=== PATIENT | male | born 1965 | race Caucasian/White ===

== ENCOUNTER 2018-01-26 07:55 | Outpatient (CLI) | payer BC ==
[~2018-01-26 07:55] MED LIST: IODIXANOL 320 MG/ML 100 ML VIAL.; LIDOCAINE 2% 20 ML VIAL.
[2018-01-26 08:34] LABS: ANION GAP 5 (6-14); BLOOD UREA NITROGEN 17 mg/dL (8-26); CALCIUM 9.6 mg/dL (8.5-10.1); CARBON DIOXIDE 31 mmol/L (21-32); CHLORIDE 104 mmol/L (98-107); CREATININE 1.4 mg/dL (0.7-1.3); GFR 52.8; GLUCOSE 137 mg/dL (70-99); POTASSIUM 4.7 mmol/L (3.5-5.1); SODIUM 140 mmol/L (136-145)
[2018-01-26 08:44] LABS: HEMATOCRIT 47.3 % (39.0-53.0); HEMOGLOBIN 15.7 g/dL (13.0-17.5); MEAN CORPUSCULAR HEMOGLOBIN 28 pg (25-35); MEAN CORPUSCULAR HGB CONC 33 g/dL (31-37); MEAN CORPUSCULAR VOLUME 85 fL (79-100); PLATELET COUNT 322 x10^3/uL (140-400); RED BLOOD COUNT 5.54 x10^6/uL (4.30-5.70); RED CELL DISTRIBUTION WIDTH 13.7 % (11.5-14.5); WHITE BLOOD COUNT 8.3 x10^3/uL (4.0-11.0)
[2018-01-26 08:45] LABS: INR 0.9 (0.8-1.1); PROTHROMBIN TIME PATIENT 11.4 SEC (11.7-14.0)
[2018-01-26] MEDS ORDERED: CONTRAST GIVEN MC (10:30)
[2018-01-26] MEDS ORDERED: HEPARIN for IV BOLUS 10,000 UNIT/10 ML VIAL. (11:09)
[2018-01-26] MEDS ORDERED: IODIXANOL 320 MG/ML 100 ML VIAL. (11:23)
[2018-01-26] MEDS: IODIXANOL 320 MG/ML 100 ML VIAL. IART (11:43)
[2018-01-26] MEDS: LIDOCAINE 2% 20 ML VIAL. IJ (11:44)
[2018-01-26] MEDS: fentaNYL PF VIAL 100 MCG/2 ML VIAL IV (11:45)
[2018-01-26] MEDS: HEPARIN for IV BOLUS 10,000 UNIT/10 ML VIAL. IV (11:45)
[2018-01-26] MEDS: MIDAZOLAM HCL/PF 2 MG/2 ML VIAL. IV (11:45)
[2018-01-26] MEDS ORDERED: IV NORMAL SALINE 1000ML BAG 1,000 ML IV (11:52)
[2018-01-26] MEDS ORDERED: 0.9 % SODIUM CHLORIDE 10 ML DISP.SYRIN. IV (12:00)
[2018-01-26] MEDS ORDERED: NITROGLYCERIN SUBLINGUAL 0.4 MG BOTTLE OF 25. SL (12:00)
== END 2018-01-26 15:58 | disposition home or self-care (01) ==
LOC: CCL 07:55
DX: I25.10 Atherosclerotic heart disease of native coronary artery without angina pectoris (principal); I25.2 Old myocardial infarction; Z95.1 Presence of aortocoronary bypass graft; E78.00 Pure hypercholesterolemia, unspecified; G47.39 Other sleep apnea; Z90.49 Acquired absence of other specified parts of digestive tract; E11.9 Type 2 diabetes mellitus without complications; Z87.891 Personal history of nicotine dependence
CPT/HCPCS: 36415; 80048; 85027; 85610; 93459; 93567; 99152; 99153; C1769; C1771; C1892; G0269; J1644; J2250; J3010

== ENCOUNTER 2021-05-31 22:10 | Inpatient (IN) | payer BC ==
[~2021-05-31] VITALS: Ht 182.9 cm; Wt 116.4 kg
[~2021-05-31 22:10] MED LIST changes: +ASPI-630 PO; +ATOR40TA59 PO; +CARV3.1210 PO; +DAPA10TA PO; +GLIP5TAB10 PO; -IODIXANOL 320 MG/ML 100 ML VIAL.; +LEVO500T59 PO; -LIDOCAINE 2% 20 ML VIAL.; +LINA5TAB PO; +LIRA0.6P SQ; +LISI20TA18 PO; +METF10007 PO; +METR-34 PO; +OXYC1TAB7 PO; +SIMV40TA18 PO; +SITA100T PO
[2021-05-31 22:29] LABS: BASO # 0.1 x10^3/uL (0.0-0.2); BASO % 1 % (0-3); EOS # 0.1 x10^3/uL (0.0-0.7); EOS % 1 % (0-3); HEMATOCRIT 45.6 % (39.0-53.0); HEMOGLOBIN 15.5 g/dL (13.0-17.5); LYMPH # 2.8 x10^3/uL (1.0-4.8); LYMPH % 35 % (24-48); MEAN CORPUSCULAR HEMOGLOBIN 29 pg (25-35); MEAN CORPUSCULAR HGB CONC 34 g/dL (31-37); MEAN CORPUSCULAR VOLUME 86 fL (79-100); MONO # 0.7 x10^3/uL (0.0-1.1); MONO % 8 % (0-9); NEUT # 4.3 x10^3/uL (1.8-7.7); NEUT % 54 % (31-73); PLATELET COUNT 257 x10^3/uL (140-400); RED BLOOD COUNT 5.33 x10^6/uL (4.30-5.70); RED CELL DISTRIBUTION WIDTH 14.4 % (11.5-14.5)
[2021-05-31 22:39] LABS: CALCIUM 9.3 mg/dL (8.5-10.1); CREATININE 1.3 mg/dL (0.7-1.3); GFR 56.7
[2021-05-31 22:44] LABS: ALBUMIN 3.8 g/dL (3.4-5.0); ALBUMIN/GLOBULIN RATIO 1.1 (1.0-1.7); TOTAL BILIRUBIN 0.3 mg/dL (0.2-1.0); TOTAL PROTEIN 7.4 g/dL (6.4-8.2)
--- NOTE | 2021-05-31 22:53 | RAD ---
PQRS Compliance Statement: One or more of the following individualized dose reduction techniques were utilized for this examinat ion: 1. Automated exposure control 2. Adjustment of the mA and/or kV according to patient size 3. Use of iterative reconstruction technique CT head without contrast 05/31/2021 10:37 PM INDICATION: Right face and arm numbness, resolved COMPARISON: None available TECHNIQUE: Multiple axial CT images of the head were obtained from skull base through the vertex with out intravenous contrast. FINDINGS: Head: Ventricles, sulci and basal cisterns are within normal limits. There is no hydrocephalus. [place]-white matter differentiation is normal. There is no acute intracranial hemorrhage. There is no mass, mass e ffect or midline shift. Posterior fossa is normal in appearance. Visualized portions of the orbits are normal. Paranasal sinuses are well aerated. Mastoid air cells a re well aerated. Scalp and calvaria are normal. IMPRESSION: No acute intracranial hemorrhage. FOR INTERNAL CODING PURPOSES Critical result: Findings discussed with Dr. Segura at 05/31/2021 10:50 PM. RESULT CODE: (C) Electronically signed by: Stephany Conti MD (05/31/2021 10:51 PM) [facility]
[2021-05-31] MEDS ORDERED: CONTRAST GIVEN. MC PRN (23:00)
[2021-05-31] MEDS ORDERED: IOHEXOL 350 MG/ML 100 ML VIAL. IV ONE (23:00)
--- NOTE | 2021-05-31 23:08 | RAD ---
PQRS Compliance Statement: One or more of the following individualized dose reduction techniques were utilized for this examinat ion: 1. Automated exposure control 2. Adjustment of the mA and/or kV according to patient size 3. Use of iterative reconstruction technique CTA STROKE HEAD/NECK w/o 05/31/2021 10:37 PM INDICATION: Code stroke. Right-sided numbness COMPARISON: CT head 05/31/2021 TECHNIQUE: Multiple axial CT images of the head and neck were obtained after the intravenous administ ration of nonionic contrast. Coronal and sagittal reformats are provided. Maximum intensity projectio n images are provided. Stenosis calculations for CT, MR, and conventional angiography are based upon measurements of the [place] ICA diameter in accordance with the NASCET methodology. Stenosis calculations for carotid ultraso und studies are derived from validated velocity criteria which are known to correlate with the NASCET methodology. FINDINGS: Ventricles, sulci and basal cisterns are normal in appearance. [place]-white matter differentiation is p reserved. There is no mass, mass effect or midline shift. Posterior fossa is normal in appearance. Se lla and suprasellar cistern appear normal. Orbits are normal in appearance with exception of bilatera l lens replacement. Scalp and calvaria appear intact. Paranasal sinuses are well aerated. Mastoid air cells are well aerated. 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 Visualized portions of lungs are clear. Thyroid gland is normal in appearance. Neck soft tissues are normal in appearance. No pathologically enlarged cervical lymphadenopathy. Pharynx and larynx appear intact. Vascular findings: There is a normal three-vessel aortic arch. Origins of the brachiocephalic vessels are widely patent. Right common carotid artery is normal in course and caliber. Mild calcified plaque identified at the right carotid bifurcation. No significant stenosis of the right cervical internal carotid artery. Ext ernal carotid artery is widely patent. There is intimal thickening of the distal left common carotid artery. There is 5 mm thick soft plaque at the left carotid bifurcation. There is 50 percent stenosis of proximal left cervical internal car otid artery secondary to noncalcified atheromatous plaque. There is moderate to severe stenosis of th e origin of the left external carotid artery. Right vertebral artery is normal in course and caliber. Left vertebral artery is diminutive in calibe r with multifocal stenosis. Severe irregularity of the intracranial segment left vertebral artery. Le ft posterior inferior cerebral artery is not definitively visualized. Intracranial segments of internal carotid arteries are normal in course and caliber. There is mild ca lcified atheromatous plaque involving the cavernous segments without significant stenosis. Origins of the ophthalmic segments of the internal carotid artery appears widely patent. Middle mild to moderat e irregularity of the left middle cerebral artery territory. Mild irregularity of the right middle ce rebral artery territory. Mild irregularity of the right A1 segment. Anterior cerebral arteries are no rmal in course and caliber. Anterior communicating artery is visualized. Basilar artery is normal in course and caliber. Superior cerebellar arteries are widely patent. Poste rior cerebral arteries are normal in course and caliber. There is no aneurysm, vascular malformation or large vessel occlusion involving [place]. Sup erior sagittal sinus is patent. IMPRESSION: 1. There is no evidence for acute intracranial hemorrhage. 2. 50 percent stenosis of the left cervical internal carotid artery at the origin secondary to noncal cified atheromatous plaque. 3. There is moderate to severe irregularity of the left vertebral artery which is diminutive in calib er. Left posterior inferior cerebral artery is not definitively visualized. 4. Intracranial atherosclerotic changes as detailed above. FOR INTERNAL CODING PURPOSES Critical result: Findings discussed with Dr. Segura at 05/31/2021 1053PM. RESULT CODE: (C) Electronically signed by: Stephany Conti MD (05/31/2021 11:06 PM) [facility]
[2021-05-31 23:43] LABS: PROTHROMBIN TIME PATIENT 12.8 SEC (11.7-14.0)
--- NOTE | 2021-05-31 23:50 | PHYS DOC ---
Past Medical History Past Medical History: Diabetes-Type II, High Cholesterol, Hypertension Past Surgical History: Appendectomy, Coronary Bypass Surgery Additional Past Surgical Histo: nasal- deviated septum Smoking Status: Never Smoker Alcohol Use: None Drug Use: None General Adult EDM: Chief Complaint: NEURO SYMPTOMS/DEFICITS HPI: HPI: Patient is a 56 year old male with past medical history of coronary artery disease status post CABG, hypertension, hyperlipidemia, and diabetes presents with a chief complaint of right upper extremity weakness. Patient states 2030 hrs. he noticed numbness/tingling and difficulty with fine motor movement of his right hand and numbness/tingling to the right side of his right side of his lips with right sided facial droop. Patients hand and facial weakness lasted approximately 1 hour and resolved prior to arrival. Patient states numbness/tingling of his right side of his lips continues but has greatly improved. Patient denied any associated headache dizziness chest pain or shortness of breath. Patient arrived by private vehicle. He ambulated into the ER with a steady gait. History obtained from the patient he was accompanied by his . Patient was activated as a code stroke certainly after arrival. Review of Systems: Review of Systems: Constitutional: Denies fever or chills. [] Eyes: Denies change in visual acuity. [] HENT: Denies nasal congestion or sore throat. [] Respiratory: Denies cough or shortness of breath. [] Cardiovascular: Denies chest pain or edema. [] GI: Denies abdominal pain, nausea, vomiting, bloody stools or diarrhea. [] : Denies dysuria. [] Musculoskeletal: Denies back pain or joint pain. [] Integument: Denies rash. [] Neurologic: Denies headache, Positive focal weakness or sensory changes. [] Endocrine: Denies polyuria or polydipsia. [] Lymphatic: Denies swollen glands. [] Psychiatric: Denies depression or anxiety. [] Heart Score: C/O Chest Pain: N/A Risk Factors: Risk Factors: DM, Current or recent (<one month) smoker, HTN, HLP, family history of CAD, obesity. Risk Scores: Score 0 - 3: 2.5% MACE over next 6 weeks - Discharge Home Score 4 - 6: 20.3% MACE over next 6 weeks - Admit for Clinical Observation Score 7 - 10: 72.7% MACE over next 6 weeks - Early Invasive Strategies Current Medications: Current Medications Medications (Trade) Dose Ordered Sig/Bishnu Start Time Stop Time Status Last Admin Dose Admin Info (CONTRAST GIVEN -- Rx MONITORING) 1 each PRN DAILY PRN 05/31/21 23:00 06/02/21 22:59 Iohexol (Omnipaque 350 Mg/ml) 75 ml 1X ONCE 05/31/21 23:00 05/31/21 23:01 DC 05/31/21 22:56 75 ML Allergies: Allergies: Allergies Coded Allergies Type Severity Reaction Last Updated Verified canagliflozin Allergy Intermediate 01/26/18 Yes Physical Exam: PE: General: alert, no acute distress. Skin: warm, dry and intact. HENT: bilateral external ears normal, oropharynx moist, nose normal. Head:: Normocephalic, atraumatic. Neck: Trachea midline. Eyes: EOMI, Normal conjunctiva, No drainage CARDIOVASCULAR: Regular rate and rhythm RESPIRATORY: No respiratory distress Back: Full range of motion. Skin: Warm, dry, no erythema, no rash. MUSCULOSKELETAL: Full range of motion of bilateral upper and lower extremities. GASTROINTESTINAL: Abdomen soft without rebound or guarding. NEUROLOGICAL: Alert and noted to person, place and time. No neurological deficits observed Psychiatric: Cooperative. Normal judgment Current Patient Data: Labs: Laboratory Tests Test 05/31/21 22:20 05/31/21 22:21 White Blood Count 8.0 x10^3/uL (4.0-11.0) Red Blood Count 5.33 x10^6/uL (4.30-5.70) Hemoglobin 15.5 g/dL (13.0-17.5) Hematocrit 45.6 % (39.0-53.0) Mean Corpuscular Volume 86 fL (79-100) Mean Corpuscular Hemoglobin 29 pg (25-35) Mean Corpuscular Hemoglobin Concent 34 g/dL (31-37) Red Cell Distribution Width 14.4 % (11.5-14.5) Platelet Count 257 x10^3/uL (140-400) Neutrophils (%) (Auto) 54 % (31-73) Lymphocytes (%) (Auto) 35 % (24-48) Monocytes (%) (Auto) 8 % (0-9) Eosinophils (%) (Auto) 1 % (0-3) Basophils (%) (Auto) 1 % (0-3) Neutrophils # (Auto) 4.3 x10^3/uL (1.8-7.7) Lymphocytes # (Auto) 2.8 x10^3/uL (1.0-4.8) Monocytes # (Auto) 0.7 x10^3/uL (0.0-1.1) Eosinophils # (Auto) 0.1 x10^3/uL (0.0-0.7) Basophils # (Auto) 0.1 x10^3/uL (0.0-0.2) Sodium Level 138 mmol/L (136-145) Potassium Level 4.0 mmol/L (3.5-5.1) Chloride Level 101 mmol/L (98-107) Carbon Dioxide Level 31 mmol/L (21-32) Anion Gap 6 (6-14) Blood Urea Nitrogen 15 mg/dL (8-26) Creatinine 1.3 mg/dL (0.7-1.3) Estimated GFR (Cockcroft-Gault) 56.7 BUN/Creatinine Ratio 12 (6-20) Glucose Level 209 mg/dL (70-99) H Calcium Level 9.3 mg/dL (8.5-10.1) Total Bilirubin 0.3 mg/dL (0.2-1.0) Aspartate Amino Transferase (AST) 15 U/L (15-37) Alanine Aminotransferase (ALT) 32 U/L (16-63) Alkaline Phosphatase 118 U/L (46-116) H Troponin I Quantitative < 0.017 ng/mL (0.000-0.055) Total Protein 7.4 g/dL (6.4-8.2) Albumin 3.8 g/dL (3.4-5.0) Albumin/Globulin Ratio 1.1 (1.0-1.7) Glucose (Fingerstick) 228 mg/dL (70-99) H Laboratory Tests 05/31/21 22:20 Laboratory Tests 05/31/21 22:20 Vital Signs: Vital Signs Date Time Temp Pulse Resp B/P (MAP) Pulse Ox O2 Delivery O2 Flow Rate FiO2 05/31/21 22:44 74 18 140/68 (92) 97 Room Air 05/31/21 22:12 98.8 98.8 EKG: EKG: Performed at 2216 Rate [address] elevation No ST depression No acute MT [] Radiology/Procedures: Radiology/Procedures: [] Impression: TECHNIQUE: Multiple axial CT images of the head and neck were obtained after the intravenous administration of nonionic contrast. Coronal and sagittal reformats are provided. Maximum intensity projection images are provided. Stenosis calculations for CT, MR, and conventional angiography are based upon measurements of the distal ICA diameter in accordance with the NASCET methodology. Stenosis calculations for carotid ultrasound studies are derived from validated velocity criteria which are known to correlate with the NASCET methodology. FINDINGS: Ventricles, sulci and basal cisterns are normal in appearance. [place]-white matter differentiation is preserved. There is no mass, mass effect or midline shift. Posterior fossa is normal in appearance. Sella and suprasellar cistern appear normal. Orbits are normal in appearance with exception of bilateral lens replacement. Scalp and calvaria appear intact. Paranasal sinuses are well aerated. Mastoid air cells are well aerated. 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 Visualized portions of lungs are clear. Thyroid gland is normal in appearance. Neck soft tissues are normal in appearance. No pathologically enlarged cervical lymphadenopathy. Pharynx and larynx appear intact. Vascular findings: There is a normal three-vessel aortic arch. Origins of the brachiocephalic vessels are widely patent. Right common carotid artery is normal in course and caliber. Mild calcified plaque identified at the right carotid bifurcation. No significant stenosis of the right cervical internal carotid artery. External carotid artery is widely patent. There is intimal thickening of the distal left common carotid artery. There is 5 mm thick soft plaque at the left carotid bifurcation. There is 50 percent stenosis of proximal left cervical internal carotid artery secondary to noncalcified atheromatous plaque. There is moderate to severe stenosis of the origin of the left external carotid artery. Right vertebral artery is normal in course and caliber. Left vertebral artery is diminutive in caliber with multifocal stenosis. Severe irregularity of the intracranial segment left vertebral artery. Left posterior inferior cerebral artery is not definitively visualized. Intracranial segments of internal carotid arteries are normal in course and caliber. There is mild calcified atheromatous plaque involving the cavernous segments without significant stenosis. Origins of the ophthalmic segments of the internal carotid artery appears widely patent. Middle mild to moderate irregularity of the left middle cerebral artery territory. Mild irregularity of the right middle cerebral artery territory. Mild irregularity of the right A1 segment. Anterior cerebral arteries are normal in course and caliber. Anterior communicating artery is visualized. Basilar artery is normal in course and caliber. Superior cerebellar arteries are widely patent. Posterior cerebral arteries are normal in course and caliber. There is no aneurysm, vascular malformation or large vessel occlusion involving [place]. Superior sagittal sinus is patent. IMPRESSION: 1. There is no evidence for acute intracranial hemorrhage. 2. 50 percent stenosis of the left cervical internal carotid artery at the origin secondary to noncalcified atheromatous plaque. 3. There is moderate to severe irregularity of the left vertebral artery which is diminutive in caliber. Left posterior inferior cerebral artery is not definitively visualized. 4. Intracranial atherosclerotic changes as detailed above. CT head without contrast 05/31/2021 10:37 PM INDICATION: Right face and arm numbness, resolved COMPARISON: None available TECHNIQUE: Multiple axial CT images of the head were obtained from skull base through the vertex without intravenous contrast. FINDINGS: Head: Ventricles, sulci and basal cisterns are within normal limits. There is no hydrocephalus. [place]-white matter differentiation is normal. There is no acute intracranial hemorrhage. There is no mass, mass effect or midline shift. Posterior fossa is normal in appearance. Visualized portions of the orbits are normal. Paranasal sinuses are well aerated. Mastoid air cells are well aerated. Scalp and calvaria are normal. IMPRESSION: No acute intracranial hemorrhage. Course & Med Decision Making: Course & Med Decision Making Pertinent Labs and Imaging studies reviewed. (See chart for details) [] Patient was evaluated for chief complaint. Work-up consisted of laboratory analysis EKG and radiologic imaging. Results reviewed and discussed with soumya hastings. Patient's NIH stroke scale is 0. He was treated with aspirin. He was admitted to the hospitalist with neurology consult. Not tpa candidate. Dragon Disclaimer: Dragon Disclaimer: This electronic medical record was generated, in whole or in part, using a voice recognition dictation system. Departure Departure Impression: Primary Impression: TIA (transient ischemic attack) Disposition: ADMITTED INPATIENT Condition: STABLE Referrals: FABIAN MORSE (PCP) NIHSS Stroke Scale NIH Stroke Scale: NIH Stroke Scale Response (Comments) Value Level of Consciousness: 0 Alert/Responsive 0 LOC Questions: 0 Answers both correctly 0 LOC Commands: 0 Performs both tasks 0 Best Gaze: 0 Normal 0 Visual: 0 No visual loss 0 Facial Palsy: 0 Normal, symmetrical 0 Motor - Left Arm 0 No drift 0 Motor - Right Arm 0 No drift 0 Motor - Left Leg 0 No drift 0 Motor: Right Leg 0 No drift 0 Limb Ataxia: 0 Absent 0 Sensory: 0 No loss 0 Best Language: 0 Normal 0 Dysathria: 0 Normal 0 Extinction and Inattention: 0 Normal 0 Total 0 THEE MARTINEZ I DO May 31, 2021 23:50
--- NOTE | 2021-06-01 07:38 | PDOC1 ---
History and Physical Date of Service: DOS: DATE: 06/01/21 TIME: 07:35 Chief Complaint: Chief Complain: Right-sided weakness and numbness History of Present Illness: HPI: 56yo right handed Male with PMHx of CABG x 5V in 2013, HTN, DLD, and DM who presents with Right hand weakness and numbness 330pm yesterday that lasted for about 2 hours. He difficulty moving his right hand especially with dexterity and fine motor movements. He also had numbness to the right side of his lips. may have noticed a right facial droop. All symptoms improved by time of arrival. Denies syncope, headache dizziness, palpitations, chest pain, SOB, ABD pain, diarrhea, or lower extremity weakness. CODe stroke activated upon arrival. Past Medical/Surgical History: PMH/PSH: Past Medical History: Diabetes-Type II, High Cholesterol, Hypertension Past Surgical History: Appendectomy, Coronary Bypass Surgery, nasal- deviated septum Allergies: Allergies: Coded Allergies: canagliflozin (Verified Allergy, Intermediate, 01/26/18) causes increased serum creatinine Family History: Family History: Reviewed with no relevant findings Social History: Social History: Smoking Status: Never Smoker Alcohol Use: None Drug Use: None Current Medications: Current Medications Current Medications Iohexol (Omnipaque 350 Mg/ml) 75 ml 1X ONCE IV Last administered on 05/31/21at 22:56; Start 05/31/21 at 23:00; Stop 05/31/21 at 23:01; Status DC Info (CONTRAST GIVEN -- Rx MONITORING) 1 each PRN DAILY PRN MC SEE COMMENTS; Start 05/31/21 at 23:00; Stop 06/02/21 at 22:59 Active Scripts Active Reported Januvia (Sitagliptin Phosphate) 100 Mg Tablet 100 Mg PO DAILY Victoza 2-Chris (Liraglutide) 0.6 Mg/0.1 Ml Pen.injctr 0.1 Mg SQ DAILY Atorvastatin Calcium 40 Mg Tablet 1 Tab PO DAILY Farxiga (Dapagliflozin Propanediol) 10 Mg Tablet 10 Mg PO DAILY Carvedilol (Carvedilol) 3.125 Mg Tablet 6.25 Mg PO BID Aspirin 81 Mg Tab.chew 325 Mg PO DAILY Glipizide 5 Mg Tablet 20 Mg PO DAILY Metformin Hcl 1,000 Mg Tablet 1,000 Mg PO BID Lisinopril 20 Mg Tablet 20 Mg PO DAILY ROS: Review of Systems Review of System REVIEW OF SYSTEMS: GENERAL: Denies weakness SKIN: No bruising, hair changes or rashes. EYES: No blurred, double or loss of vision. NOSE AND THROAT: No history of nosebleeds, hoarseness or sore throat. HEART: No history of palpitations, chest pain or shortness of breath on exertion. LUNGS: Denies cough, hemoptysis, wheezing or shortness of breath. GASTROINTESTINAL: Denies changes in appetite, nausea, vomiting, diarrhea or constipation. GENITOURINARY: No history of frequency, urgency, hesitancy or nocturia. NEUROLOGIC: Denies history of numbness, tingling, or tremor. PSYCHIATRIC: No history of panic, anxiety or depression. ENDOCRINE: No history of heat or cold intolerance, polyuria or polydipsia. EXTREMITIES: Denies joint pain, pain on walking or stiffness. Physical Exam: Vital Signs: Vital Signs Date Time Temp Pulse Resp B/P (MAP) Pulse Ox O2 Delivery O2 Flow Rate FiO2 06/01/21 05:42 60 15 152/73 (99) 98 Room Air 05/31/21 22:12 98.8 98.8 Physcial Exam: GEN: No apparent distress. Alert and oriented HEENT: Normal cephalic, atraumatic, external auditory canals are patent EYES: Extraocular muscles are intact, pupil are equally round and reactive to light and accommodation MUSCULOSKELETAL: Well developed , well nourished, good range of motion ENDOCRINE: No thyromegaly was palpated LYMPHATICS: No cervical chain or axillary nodes were noted HEMATOPOIETIC: No bruising NECK: Supple, no JVD, no thyromegaly was noted LUNGS: Clear to auscultation in all lung mcrae without rhonchi or wheezing HEART: RRR, S!, S2 present. Peripheral pulses intact, no obvious murmurs noted ABDOMEN: Soft, nontender. Positive bowel sounds, no organomegaly, normal bowel sounds EXTREMITIES: Without clubbing, cyanosis, or edema. Pedal pulses intact. Negative Homans sign NEUROLOGIC: Normal speech and tone. A&O x 3, moves all extremities, no obvious focal deficits PSYCHIATRIC: Normal affect, normal mood. Stable SKIN: No ulcerations or rashes, good skin turgor, no jaundice VASCULAR: Good capillary refill, neurovascular bundle appears to be intact Labs: Labs: Laboratory Tests Test 05/31/21 22:00 05/31/21 22:20 05/31/21 22:21 Prothrombin Time 12.8 SEC (11.7-14.0) Prothromb Time International Ratio 1.0 (0.8-1.1) Activated Partial Thromboplast Time 34 SEC (24-38) White Blood Count 8.0 x10^3/uL (4.0-11.0) Red Blood Count 5.33 x10^6/uL (4.30-5.70) Hemoglobin 15.5 g/dL (13.0-17.5) Hematocrit 45.6 % (39.0-53.0) Mean Corpuscular Volume 86 fL (79-100) Mean Corpuscular Hemoglobin 29 pg (25-35) Mean Corpuscular Hemoglobin Concent 34 g/dL (31-37) Red Cell Distribution Width 14.4 % (11.5-14.5) Platelet Count 257 x10^3/uL (140-400) Neutrophils (%) (Auto) 54 % (31-73) Lymphocytes (%) (Auto) 35 % (24-48) Monocytes (%) (Auto) 8 % (0-9) Eosinophils (%) (Auto) 1 % (0-3) Basophils (%) (Auto) 1 % (0-3) Neutrophils # (Auto) 4.3 x10^3/uL (1.8-7.7) Lymphocytes # (Auto) 2.8 x10^3/uL (1.0-4.8) Monocytes # (Auto) 0.7 x10^3/uL (0.0-1.1) Eosinophils # (Auto) 0.1 x10^3/uL (0.0-0.7) Basophils # (Auto) 0.1 x10^3/uL (0.0-0.2) Sodium Level 138 mmol/L (136-145) Potassium Level 4.0 mmol/L (3.5-5.1) Chloride Level 101 mmol/L (98-107) Carbon Dioxide Level 31 mmol/L (21-32) Anion Gap 6 (6-14) Blood Urea Nitrogen 15 mg/dL (8-26) Creatinine 1.3 mg/dL (0.7-1.3) Estimated GFR (Cockcroft-Gault) 56.7 BUN/Creatinine Ratio 12 (6-20) Glucose Level 209 mg/dL (70-99) Calcium Level 9.3 mg/dL (8.5-10.1) Total Bilirubin 0.3 mg/dL (0.2-1.0) Aspartate Amino Transf (AST/SGOT) 15 U/L (15-37) Alanine Aminotransferase (ALT/SGPT) 32 U/L (16-63) Alkaline Phosphatase 118 U/L (46-116) Troponin I Quantitative < 0.017 ng/mL (0.000-0.055) Total Protein 7.4 g/dL (6.4-8.2) Albumin 3.8 g/dL (3.4-5.0) Albumin/Globulin Ratio 1.1 (1.0-1.7) Glucose (Fingerstick) 228 mg/dL (70-99) Laboratory Tests Test 05/31/21 22:00 05/31/21 22:20 05/31/21 22:21 Prothrombin Time 12.8 SEC (11.7-14.0) Prothromb Time International Ratio 1.0 (0.8-1.1) Activated Partial Thromboplast Time 34 SEC (24-38) White Blood Count 8.0 x10^3/uL (4.0-11.0) Red Blood Count 5.33 x10^6/uL (4.30-5.70) Hemoglobin 15.5 g/dL (13.0-17.5) Hematocrit 45.6 % (39.0-53.0) Mean Corpuscular Volume 86 fL (79-100) Mean Corpuscular Hemoglobin 29 pg (25-35) Mean Corpuscular Hemoglobin Concent 34 g/dL (31-37) Red Cell Distribution Width 14.4 % (11.5-14.5) Platelet Count 257 x10^3/uL (140-400) Neutrophils (%) (Auto) 54 % (31-73) Lymphocytes (%) (Auto) 35 % (24-48) Monocytes (%) (Auto) 8 % (0-9) Eosinophils (%) (Auto) 1 % (0-3) Basophils (%) (Auto) 1 % (0-3) Neutrophils # (Auto) 4.3 x10^3/uL (1.8-7.7) Lymphocytes # (Auto) 2.8 x10^3/uL (1.0-4.8) Monocytes # (Auto) 0.7 x10^3/uL (0.0-1.1) Eosinophils # (Auto) 0.1 x10^3/uL (0.0-0.7) Basophils # (Auto) 0.1 x10^3/uL (0.0-0.2) Sodium Level 138 mmol/L (136-145) Potassium Level 4.0 mmol/L (3.5-5.1) Chloride Level 101 mmol/L (98-107) Carbon Dioxide Level 31 mmol/L (21-32) Anion Gap 6 (6-14) Blood Urea Nitrogen 15 mg/dL (8-26) Creatinine 1.3 mg/dL (0.7-1.3) Estimated GFR (Cockcroft-Gault) 56.7 BUN/Creatinine Ratio 12 (6-20) Glucose Level 209 mg/dL (70-99) Calcium Level 9.3 mg/dL (8.5-10.1) Total Bilirubin 0.3 mg/dL (0.2-1.0) Aspartate Amino Transf (AST/SGOT) 15 U/L (15-37) Alanine Aminotransferase (ALT/SGPT) 32 U/L (16-63) Alkaline Phosphatase 118 U/L (46-116) Troponin I Quantitative < 0.017 ng/mL (0.000-0.055) Total Protein 7.4 g/dL (6.4-8.2) Albumin 3.8 g/dL (3.4-5.0) Albumin/Globulin Ratio 1.1 (1.0-1.7) Glucose (Fingerstick) 228 mg/dL (70-99) Images: Images PROCEDURE: CT CODE STROKE HEAD WO IMPRESSION: No acute intracranial hemorrhage. PROCEDURE: CTA HEAD/NECK - CODE STROKE PQRS Compliance Statement: One or more of the following individualized dose reduction techniques were utilized for this examination: 1. Automated exposure control 2. Adjustment of the mA and/or kV according to patient size 3. Use of iterative reconstruction technique CTA STROKE HEAD/NECK w/o 05/31/2021 10:37 PM IMPRESSION: 1. There is no evidence for acute intracranial hemorrhage. 2. 50 percent stenosis of the left cervical internal carotid artery at the or igin secondary to noncalcified atheromatous plaque. 3. There is moderate to severe irregularity of the left vertebral artery which is diminutive in caliber. Left posterior inferior cerebral artery is not definitively visualized. 4. Intracranial atherosclerotic changes as detailed above. Assessment/Plan Assessment/Plan Acute TIA versus ischemic stroke Hyperglycemia uncontrolled History of diabetes mellitus type 2 History of dyslipidemia History of hypertension History of CABG CT head negative EKG Onset of symptoms > 4.5 hours NIH 0 Admit to medicine for further workup Neuro consult Pending MRI brain, TTE, carotid U/S vs CTA head/neck if suspecting large anterior circulation occulsion within 24 hours of presentation of symptoms continue telemonitoring for at least 24 hours contine IVF while NPO maintain normoglycemia with goals of 140-180 permissive HTN with goals between 140-180/90-105 for at least 24 hours if tPA administered, maintain BP goals < 180/105 for at least 24 hours continue ASA 81 daily within 48 hours continue high intensity statins pending PT/OT/speech Justifications for Admission Other Justification GREGG SMITH MD Jun 01, 2021 07:38
[2021-06-01] MEDS ORDERED: DOCUSATE SODIUM 100 MG CAPSULE. PO PRN (07:45)
[2021-06-01] MEDS ORDERED: DEXTROSE 50% 25 GM / 50ML DISP.SYRIN. IV PRN (07:45)
[2021-06-01] MEDS ORDERED: ACETAMINOPHEN 325 MG TABLET. PO PRN (07:45)
[2021-06-01] MEDS ORDERED: ONDANSETRON PF 4 MG/2 ML VIAL. IVP PRN (07:45)
[2021-06-01] MEDS ORDERED: SENNOSIDES 8.6 MG TABLET PO PRN (07:45)
[2021-06-01] MEDS ORDERED: HYDROcodone/APAP 5/325MG 1 TAB TABLET PO PRN ×2 (07:45)
--- NOTE | 2021-06-01 07:50 | EKG ---
[facility] [address] [place] [address] Test Date: 2021-05-31 Test Time: 22:16:05 Pat Name: MARY CALDERÓN Department: Room: Gender: Solution Spec: : 1965 Requested By: THEE MARTINEZ Order Number: [id number] Reading MD: Measurements Intervals Timber Rate: 69 P: 33 AR: 156 QRS: -51 QRSD: 106 T: 44 QT: 404 QTc: 434 Interpretive Statements SINUS RHYTHM ABNORMAL LEFT AXIS DEVIATION R-S TRANSITION ZONE IN V LEADS DISPLACED TO THE RIGHT S1,S2,S3 PATTERN CONSIDER RIGHT VENTRICULAR HYPERTROPHY QRS(T) CONTOUR ABNORMALITY CONSISTENT WITH INFERIOR INFARCT PROBABLY OLD ABNORMAL ECG RI6.02 No previous ECG available for comparison
[2021-06-01] MEDS: INSULIN LISPRO 300 UNITS/3 ML VIAL. SQ SCH ×3 (08:00→17:00)
[2021-06-01 08:40] VITALS: BP 133/71
[2021-06-01] MEDS: ASPIRIN ENTERIC COATED 81 MG TABLET.DR. PO SCH (08:56)
[2021-06-01] MEDS: ENOXAPARIN 40 MG/0.4 ML SYRINGE. SQ SCH (08:56)
[2021-06-01] MEDS: CLOPIDOGREL BISULFATE 75 MG TABLET PO SCH (08:56)
--- NOTE | 2021-06-01 09:43 | PDOC2 ---
NEUROLOGY CONSULT Date of Service DOS: DATE: 06/01/21 TIME: 09:38 Reason for Consult Reason for Consult: Neurological symptoms Referring Physician Referring Physician: Dr. Perez Source Source: Chart review, Patient History of Present Illness History of Present Illness The patient is a 56-year-old right-handed male who at 20:30 last night noticed right upper extremity weakness just after getting home from work. Few minutes later he noticed some tingling in his right face. He had trouble moving his right side. Symptoms resolved by 23:00. There was no headache, diplopia, cognitive change and no prior history of stroke, seizure, or head injury. He has been taking his daily aspirin. 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 Current Medications Current Medications Current Medications Iohexol (Omnipaque 350 Mg/ml) 75 ml 1X ONCE IV Last administered on 05/31/21at 22:56; Start 05/31/21 at 23:00; Stop 05/31/21 at 23:01; Status DC Info (CONTRAST GIVEN -- Rx MONITORING) 1 each PRN DAILY PRN MC SEE COMMENTS; Start 05/31/21 at 23:00; Stop 06/02/21 at 22:59 Sennosides (Senna) 17.2 mg PRN BID PRN PO CONSTIPATION; Start 06/01/21 at 07:45 Docusate Sodium (Colace) 100 mg PRN DAILY PRN PO HARD STOOLS; Start 06/01/21 at 07:45 Ondansetron HCl (Zofran) 4 mg PRN Q6HRS PRN IVP NAUSEA/VOMITING; Start 06/01/21 at 07:45 Insulin Human Lispro (HumaLOG) 0-7 UNITS TIDWMEALS SQ ; Start 06/01/21 at 08:00 Dextrose (Dextrose 50%-Water Syringe) 12.5 gm PRN Q15MIN PRN IV SEE COMMENTS; Start 06/01/21 at 07:45 Acetaminophen (Tylenol) 650 mg PRN Q4HRS PRN PO TEMP OVER 100.4F OR MILD PAIN; Start 06/01/21 at 07:45 Enoxaparin Sodium (Lovenox 40mg Syringe) 40 mg Q24H SQ Last administered on 06/01/21at 08:56; Start 06/01/21 at 08:00 Acetaminophen/ Hydrocodone Bitart (Lortab 5/325) 1 tab PRN Q4HRS PRN PO MILD PAIN 1-3; Start 06/01/21 at 07:45 Acetaminophen/ Hydrocodone Bitart (Lortab 5/325) 2 tab PRN Q4HRS PRN PO MODERATE PAIN, SEVERE PAIN; Start 06/01/21 at 07:45 Clopidogrel Bisulfate (Plavix) 75 mg DAILYWBKFT PO Last administered on 06/01/21at 08:56; Start 06/01/21 at 08:45 Aspirin (Ecotrin) 81 mg DAILYWBKFT PO Last administered on 06/01/21at 08:56; Start 06/01/21 at 08:45 Active Scripts Active Reported Januvia (Sitagliptin Phosphate) 100 Mg Tablet 100 Mg PO DAILY Victoza 2-Chris (Liraglutide) 0.6 Mg/0.1 Ml Pen.injctr 0.1 Mg SQ DAILY Atorvastatin Calcium 40 Mg Tablet 1 Tab PO DAILY Farxiga (Dapagliflozin Propanediol) 10 Mg Tablet 10 Mg PO DAILY Carvedilol (Carvedilol) 3.125 Mg Tablet 6.25 Mg PO BID Aspirin 81 Mg Tab.chew 325 Mg PO DAILY Glipizide 5 Mg Tablet 20 Mg PO DAILY Metformin Hcl 1,000 Mg Tablet 1,000 Mg PO BID Lisinopril 20 Mg Tablet 20 Mg PO DAILY Allergies Allergies: Coded Allergies: canagliflozin (Verified Allergy, Intermediate, 01/26/18) causes increased serum creatinine ROS Review of System Negative for fever, chills, weight loss, shortness of breath, chest pain, indigestion, hematochezia, melena, and dysuria. Full 14-point review of systems is negative. Physical Exam Physical Examination General: Well-developed, well-nourished white male in no acute distress HEENT: Normocephalic andatraumatic. Temporal arteriespulsatile and nontender. Neck: Supple without bruit, no meningismus Musculoskeletal: Stability:see neurologic. Gait exam:see neurologic. Tone:see neurologic.Strength:see neurologic. Neurological: Mental Status:intact, orientation, memory, attention span/concentration, language, fund of knowledge normal. Cranial Nerves:Pupils equal and reactive to light, extraocular movements areintact, visual mcrae are full to confrontation. Facial sensation is normal. There is no facial asymmetry. Vestibulo-ocular reflex is intact. Palate elevates and tongue protrudes in midline. All other cranial related problems are negative except as mentioned before.Reflexes:2+ and symmetric with flexor plantar responses. Motor:5/5 strength with normal tone and bulk. Coordination:Finger-nose finger and [id number] testing are normal. Rapid alternating movements and fine finger movements are intact. Gait:Normal, including tandem. Sensory:Normal pinprick, vibration, light touch, proprioception. Vitals VITALS Vital Signs Date Time Temp Pulse Resp B/P (MAP) Pulse Ox O2 Delivery O2 Flow Rate FiO2 06/01/21 08:40 97.7 57 18 133/71 (91) 98 Room Air 97.7 Labs Labs Laboratory Tests Test 05/31/21 22:00 05/31/21 22:20 05/31/21 22:21 06/01/21 08:39 Prothrombin Time 12.8 SEC (11.7-14.0) Prothromb Time International Ratio 1.0 (0.8-1.1) Activated Partial Thromboplast Time 34 SEC (24-38) White Blood Count 8.0 x10^3/uL (4.0-11.0) Red Blood Count 5.33 x10^6/uL (4.30-5.70) Hemoglobin 15.5 g/dL (13.0-17.5) Hematocrit 45.6 % (39.0-53.0) Mean Corpuscular Volume 86 fL (79-100) Mean Corpuscular Hemoglobin 29 pg (25-35) Mean Corpuscular Hemoglobin Concent 34 g/dL (31-37) Red Cell Distribution Width 14.4 % (11.5-14.5) Platelet Count 257 x10^3/uL (140-400) Neutrophils (%) (Auto) 54 % (31-73) Lymphocytes (%) (Auto) 35 % (24-48) Monocytes (%) (Auto) 8 % (0-9) Eosinophils (%) (Auto) 1 % (0-3) Basophils (%) (Auto) 1 % (0-3) Neutrophils # (Auto) 4.3 x10^3/uL (1.8-7.7) Lymphocytes # (Auto) 2.8 x10^3/uL (1.0-4.8) Monocytes # (Auto) 0.7 x10^3/uL (0.0-1.1) Eosinophils # (Auto) 0.1 x10^3/uL (0.0-0.7) Basophils # (Auto) 0.1 x10^3/uL (0.0-0.2) Sodium Level 138 mmol/L (136-145) Potassium Level 4.0 mmol/L (3.5-5.1) Chloride Level 101 mmol/L (98-107) Carbon Dioxide Level 31 mmol/L (21-32) Anion Gap 6 (6-14) Blood Urea Nitrogen 15 mg/dL (8-26) Creatinine 1.3 mg/dL (0.7-1.3) Estimated GFR (Cockcroft-Gault) 56.7 BUN/Creatinine Ratio 12 (6-20) Glucose Level 209 mg/dL (70-99) Calcium Level 9.3 mg/dL (8.5-10.1) Total Bilirubin 0.3 mg/dL (0.2-1.0) Aspartate Amino Transf (AST/SGOT) 15 U/L (15-37) Alanine Aminotransferase (ALT/SGPT) 32 U/L (16-63) Alkaline Phosphatase 118 U/L (46-116) Troponin I Quantitative < 0.017 ng/mL (0.000-0.055) Total Protein 7.4 g/dL (6.4-8.2) Albumin 3.8 g/dL (3.4-5.0) Albumin/Globulin Ratio 1.1 (1.0-1.7) Glucose (Fingerstick) 228 mg/dL (70-99) 144 mg/dL (70-99) Laboratory Tests Test 05/31/21 22:00 05/31/21 22:20 05/31/21 22:21 06/01/21 08:39 Prothrombin Time 12.8 SEC (11.7-14.0) Prothromb Time International Ratio 1.0 (0.8-1.1) Activated Partial Thromboplast Time 34 SEC (24-38) White Blood Count 8.0 x10^3/uL (4.0-11.0) Red Blood Count 5.33 x10^6/uL (4.30-5.70) Hemoglobin 15.5 g/dL (13.0-17.5) Hematocrit 45.6 % (39.0-53.0) Mean Corpuscular Volume 86 fL (79-100) Mean Corpuscular Hemoglobin 29 pg (25-35) Mean Corpuscular Hemoglobin Concent 34 g/dL (31-37) Red Cell Distribution Width 14.4 % (11.5-14.5) Platelet Count 257 x10^3/uL (140-400) Neutrophils (%) (Auto) 54 % (31-73) Lymphocytes (%) (Auto) 35 % (24-48) Monocytes (%) (Auto) 8 % (0-9) Eosinophils (%) (Auto) 1 % (0-3) Basophils (%) (Auto) 1 % (0-3) Neutrophils # (Auto) 4.3 x10^3/uL (1.8-7.7) Lymphocytes # (Auto) 2.8 x10^3/uL (1.0-4.8) Monocytes # (Auto) 0.7 x10^3/uL (0.0-1.1) Eosinophils # (Auto) 0.1 x10^3/uL (0.0-0.7) Basophils # (Auto) 0.1 x10^3/uL (0.0-0.2) Sodium Level 138 mmol/L (136-145) Potassium Level 4.0 mmol/L (3.5-5.1) Chloride Level 101 mmol/L (98-107) Carbon Dioxide Level 31 mmol/L (21-32) Anion Gap 6 (6-14) Blood Urea Nitrogen 15 mg/dL (8-26) Creatinine 1.3 mg/dL (0.7-1.3) Estimated GFR (Cockcroft-Gault) 56.7 BUN/Creatinine Ratio 12 (6-20) Glucose Level 209 mg/dL (70-99) Calcium Level 9.3 mg/dL (8.5-10.1) Total Bilirubin 0.3 mg/dL (0.2-1.0) Aspartate Amino Transf (AST/SGOT) 15 U/L (15-37) Alanine Aminotransferase (ALT/SGPT) 32 U/L (16-63) Alkaline Phosphatase 118 U/L (46-116) Troponin I Quantitative < 0.017 ng/mL (0.000-0.055) Total Protein 7.4 g/dL (6.4-8.2) Albumin 3.8 g/dL (3.4-5.0) Albumin/Globulin Ratio 1.1 (1.0-1.7) Glucose (Fingerstick) 228 mg/dL (70-99) 144 mg/dL (70-99) Images Images CT head without contrast 05/31/2021 10:37 PM INDICATION: Right face and arm numbness, resolved COMPARISON: None available TECHNIQUE: Multiple axial CT images of the head were obtained from skull base through the vertex without intravenous contrast. FINDINGS: Head: Ventricles, sulci and basal cisterns are within normal limits. There is no hydrocephalus. [place]-white matter differentiation is normal. There is no acute intracranial hemorrhage. There is no mass, mass effect or midline shift. Posterior fossa is normal in appearance. Visualized portions of the orbits are normal. Paranasal sinuses are well aerated. Mastoid air cells are well aerated. Scalp and calvaria are normal. IMPRESSION: No acute intracranial hemorrhage. CTA STROKE HEAD/NECK w/o 05/31/2021 10:37 PM INDICATION: Code stroke. Right-sided numbness COMPARISON: CT head 05/31/2021 TECHNIQUE: Multiple axial CT images of the head and neck were obtained after the intravenous administration of nonionic contrast. Coronal and sagittal reformats are provided. Maximum intensity projection images are provided. Stenosis calculations for CT, MR, and conventional angiography are based upon measurements of the distal ICA diameter in accordance with the NASCET methodology. Stenosis calculations for carotid ultrasound studies are derived from validated velocity criteria which are known to correlate with the NASCET methodology. FINDINGS: Ventricles, sulci and basal cisterns are normal in appearance. [place]-white matter differentiation is preserved. There is no mass, mass effect or midline shift. Posterior fossa is normal in appearance. Sella and suprasellar cistern appear normal. Orbits are normal in appearance with exception of bilateral lens replacement. Scalp and calvaria appear intact. Paranasal sinuses are well aerated. Mastoid air cells are well aerated. 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 Visualized portions of lungs are clear. Thyroid gland is normal in appearance. Neck soft tissues are normal in appearance. No pathologically enlarged cervical lymphadenopathy. Pharynx and larynx appear intact. Vascular findings: There is a normal three-vessel aortic arch. Origins of the brachiocephalic vessels are widely patent. Right common carotid artery is normal in course and caliber. Mild calcified plaque identified at the right carotid bifurcation. No significant stenosis of the right cervical internal carotid artery. External carotid artery is widely patent. There is intimal thickening of the distal left common carotid artery. There is 5 mm thick soft plaque at the left carotid bifurcation. There is 50 percent stenosis of proximal left cervical internal carotid artery secondary to noncalcified atheromatous plaque. There is moderate to severe stenosis of the origin of the left external carotid artery. Right vertebral artery is normal in course and caliber. Left vertebral artery is diminutive in caliber with multifocal stenosis. Severe irregularity of the intracranial segment left vertebral artery. Left posterior inferior cerebral art davon is not definitively visualized. Intracranial segments of internal carotid arteries are normal in course and caliber. There is mild calcified atheromatous plaque involving the cavernous segments without significant stenosis. Origins of the ophthalmic segments of the internal carotid artery appears widely patent. Middle mild to moderate irregularity of the left middle cerebral artery territory. Mild irregularity of the right middle cerebral artery territory. Mild irregularity of the right A1 segment. Anterior cerebral arteries are normal in course and caliber. Anterior communicating artery is visualized. Basilar artery is normal in course and caliber. Superior cerebellar arteries are widely patent. Posterior cerebral arteries are normal in course and caliber. There is no aneurysm, vascular malformation or large vessel occlusion involving [place] of [place]. Superior sagittal sinus is patent. IMPRESSION: 1. There is no evidence for acute intracranial hemorrhage. 2. 50 percent stenosis of the left cervical internal carotid artery at the origin secondary to noncalcified atheromatous plaque. 3. There is moderate to severe irregularity of the left vertebral artery which is diminutive in caliber. Left posterior inferior cerebral artery is not definitively visualized. 4. Intracranial atherosclerotic changes as detailed above. 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 Thank you for letting me help with the patient's care. AKILA HUSSEIN MD Jun 01, 2021 09:43
[2021-06-01] MEDS ORDERED: METF-658 PO (10:07)
[2021-06-01] MEDS ORDERED: LISI-517 PO (10:07)
[2021-06-01] MEDS ORDERED: GLIP10TA24 PO (10:07)
--- NOTE | 2021-06-01 10:42 | NUR ---
SS following for discharge planning. SS reviewed pt chart and discussed with pt RN. Pt is from home and is currently on room air. Neurology consulted. PT/OT/ST ordered. MRI and ECHO ordered. Pt on PO diet. SS will continue to follow for discharge planning.
[2021-06-01 11:08] VITALS: BP 122/60
[2021-06-01 11:40] LABS: CHOLESTEROL/HDL RATIO 4.5
[2021-06-01 15:30] VITALS: BP 111/68
[2021-06-01] MEDS ORDERED: CLOP75TA PO (15:49)
--- NOTE | 2021-06-01 15:50 | DISCH ---
DISCHARGE INSTRUCTIONS Condition on Discharge Condition on Discharge: Stable Activity After Discharge Activity Instructions for Disc: Bedrest today, Other, see below Bathing Instructions: Shower-keep dressing dry, No Tub Bath until see Lifting Instructions after Dis: No heavy lifting, No pulling or pushing, Do not lift >10 pounds Exercise Instruction after Dis: Walk 10 min, 3 x per day Driving Instructions after Dis: Do not drive today Weight Bearing Status after Di: Other, see below Diet after Discharge Diet after Discharge: Diabetic No Calorie Level Wound Incision Care Wound/Incision Care: Keep wound/cast CDI Wound Care Equipment: Dressings Contacting the [facility] after DC Call your doctor for: Concerns you may have Follow-Up Follow up with: PCP within 2 weeks of discharge Follow Up With: Die Maker Bench Stamping DEIRDRE after discharge, follow up with echo results Treatment/Equipment after DC Adaptive Equipment Issued: None GREGG SMITH MD Jun 01, 2021 15:50
--- NOTE | 2021-06-01 15:55 | RAD ---
MRI BRAIN WO Date: 06/01/2021 2:58 PM Indication: left hemisphere TIA. Right face and arm numbness Comparison: CT 05/31/2021. Technique: Multiplanar multisequence MRI of the brain was performed without intravenous contrast usin g the standard protocol. Findings: Punctate restricted diffusion in the left frontoparietal region. No acute or chronic hemorrhage. The ventricles are normal in size and configuration without hydrocephalus. Mild scattered FLAIR hyperinte nsities in the subcortical and periventricular deep white matter, a nonspecific finding, most commonl y seen with chronic small vessel ischemic disease. The scalp and calvarium are normal. The pituitary and sella are normal. No Chiari malformation. The v isualized upper cervical spine is normal. The visualized orbits and globes are normal. The visualized paranasal sinuses are clear. The mastoid air cells are clear. Normal flow voids within the vertebral, basilar, and internal carotid arteries indicating patency. IMPRESSION: 1. Punctate acute infarct in the left frontoparietal region. No acute hemorrhage. 2. Mild scattered FLAIR hyperintensities in the subcortical and periventricular deep white matter, a nonspecific finding, most commonly seen with chronic small vessel ischemic disease. FOR INTERNAL CODING PURPOSES Critical result: Findings discussed with the patient's nurse, Merary, at 06/01/2021 3:52 PM. RESULT CODE: (C) Electronically signed by: Emanuel Cisneros MD (06/01/2021 3:53 PM) [id number]
--- NOTE | 2021-06-01 17:05 | CARD ---
MR#: [id number] Date of Study: 06/01/2021 Ordering Physician: AKILA HUSSEIN, Referring Physician: AKILA HUSSEIN, Tech: Geno Gautam [facility] APPROVED REPORT EXAM: Two-dimensional and M-mode echocardiogram with Doppler and color Doppler. Other Information Quality : Average Rhythm : NSR INDICATION CVA/TIA Cardiac Disease: RISK FACTORS Hypertension Hyperlipidemia 2D DIMENSIONS RVDd4.4 (2.9-3.5cm)Left Atrium(2D)3.7 (1.6-4.0cm) IVSd1.2 (0.7-1.1cm)Aortic Root(2D)3.1 (2.0-3.7cm) LVDd4.8 (3.9-5.9cm)LVOT Diameter2.2 (1.8-2.4cm) PWd0.9 (0.7-1.1cm)LVDs3.3 (2.5-4.0cm) FS (%) 31.4 %SV64.5 ml LVEF(%)59.2 (>50%) Aortic Valve AoV Peak Sandeep.131.9cm/sAoV VTI25.4cm AO Peak GR.7.0mmHgLVOT Peak Sandeep.135.1cm/s AO Mean GR.3mmHgAVA (VMAX)3.73cm2 Mitral Valve MV E Hwubltez45.4cm/sMV DECEL [id number] MV A Woxvodhp74.3cm/sE/A Ratio1.0 Tricuspid Valve TR P. [id number]/sTR Peak Gr.25mmHg LEFT VENTRICLE The left ventricle is normal size. There is normal left ventricular wall thickness. The left ventricu lar systolic function is normal. Estimated ejection fraction 55%. There is normal LV segmental wall motion. The left ventricular diastolic function and filling is normal for age. RIGHT VENTRICLE The right ventricle is normal size. There is normal right ventricular wall thickness. The right ventr icular systolic function is normal. ATRIA The left atrium size is normal. The right atrium size is normal. The interatrial septum is intact wit h no evidence for an atrial septal defect or patent foramen ovale as noted on 2-D or Doppler imaging. AORTIC VALVE The aortic valve is normal in structure and function. Doppler and Color Flow revealed no significant aortic regurgitation. There is no significant aortic valvular stenosis. MITRAL VALVE The mitral valve is normal in structure and function. There is no evidence of mitral valve prolapse. There is no mitral valve stenosis. Doppler and Color Flow revealed no mitral valve regurgitation note d. TRICUSPID VALVE The tricuspid valve is normal in structure and function. Doppler and Color Flow revealed trace to mil d tricuspid regurgitation. Estimated PAP 30 mmHg. There is no tricuspid valve stenosis. PULMONIC VALVE The pulmonary valve is normal in structure and function. Doppler and Color Flow revealed mild pulmoni c valvular regurgitation. GREAT VESSELS The aortic root is normal in size. The ascending aorta is normal in size. The IVC is normal in size a nd collapses >50% with inspiration. PERICARDIAL EFFUSION There is no evidence of significant pericardial effusion. Critical Notification Critical Value: No <Conclusion> The left ventricular systolic function is normal. Estimated ejection fraction 55%. There is normal LV segmental wall motion. Trace to mild tricuspid regurgitation. Estimated PAP 30 mmHg. There is no evidence of significant pericardial effusion. Signed by : Dl Boudreaux, Electronically Approved : 06/01/2021 17:05:20
[2021-06-01] MEDS: CARVEDILOL 6.25 MG TABLET. PO SCH (17:53)
[2021-06-01] MEDS: glipiZIDE 5 MG TABLET PO SCH (17:53)
[2021-06-01] MEDS ORDERED: DAPA10TA PO (18:16)
[2021-06-01] MEDS ORDERED: SITA100T PO (18:16)
[2021-06-01 19:00] VITALS: BP 128/76
[2021-06-01] MEDS ORDERED: ATORVASTATIN CALCIUM 40 MG TABLET. PO SCH (21:00)
[2021-06-01] MEDS ORDERED: LIRAGLUTIDE 1.8 MG SQ SCH (21:30)
[2021-06-01 23:00] VITALS: BP 116/63
[2021-06-01 23:07] LABS: HEMOGLOBIN A1C 7.4 % (4.8-5.6)
[2021-06-02 02:37] VITALS: BP 104/71
[2021-06-02 07:00] VITALS: BP 117/71
[2021-06-02 07:49] LABS: BASO % 1 % (0-3); EOS # 0.1 x10^3/uL (0.0-0.7); EOS % 1 % (0-3); HEMATOCRIT 44.5 % (39.0-53.0); LYMPH # 2.2 x10^3/uL (1.0-4.8); LYMPH % 33 % (24-48); MEAN CORPUSCULAR HEMOGLOBIN 29 pg (25-35); MEAN CORPUSCULAR HGB CONC 34 g/dL (31-37); MEAN CORPUSCULAR VOLUME 86 fL (79-100); MONO # 0.5 x10^3/uL (0.0-1.1); MONO % 7 % (0-9); NEUT # 3.8 x10^3/uL (1.8-7.7); NEUT % 58 % (31-73); PLATELET COUNT 225 x10^3/uL (140-400); RED BLOOD COUNT 5.17 x10^6/uL (4.30-5.70); RED CELL DISTRIBUTION WIDTH 14.5 % (11.5-14.5); WHITE BLOOD COUNT 6.6 x10^3/uL (4.0-11.0)
[2021-06-02] MEDS: INSULIN LISPRO 300 UNITS/3 ML VIAL. SQ SCH (08:00)
[2021-06-02 08:14] LABS: CALCIUM 8.9 mg/dL (8.5-10.1); GFR 76.7; MAGNESIUM 1.8 mg/dL (1.8-2.4); PHOSPHORUS 3.7 mg/dL (2.6-4.7); POTASSIUM 4.3 mmol/L (3.5-5.1)
[2021-06-02] MEDS: ASPIRIN ENTERIC COATED 81 MG TABLET.DR. PO SCH (08:39)
[2021-06-02] MEDS: CARVEDILOL 6.25 MG TABLET. PO SCH (08:40)
[2021-06-02] MEDS: CLOPIDOGREL BISULFATE 75 MG TABLET PO SCH (08:40)
[2021-06-02] MEDS: glipiZIDE 5 MG TABLET PO SCH (08:40)
[2021-06-02] MEDS: ENOXAPARIN 40 MG/0.4 ML SYRINGE. SQ SCH (08:41)
--- NOTE | 2021-06-02 08:47 | PDOC ---
PROGRESS NOTES Date of Service DATE: 06/02/21 TIME: 08:44 Assessment Problems Medical Problems: (1) TIA (transient ischemic attack) Status: Acute Clinically a transient ischemic attack, but MRI showed small left frontal infarct in the deep white matter. 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 Follow-up with me as needed Subjective No complaints, no further episodes Objective Vital Signs Date Time Temp Pulse Resp B/P (MAP) Pulse Ox O2 Delivery O2 Flow Rate FiO2 06/02/21 08:40 85 06/02/21 02:37 97.7 18 104/71 (82) 96 Room Air 97.7 Intake and Output 06/02/21 07:00 Intake Total 1000 ml Balance 1000 ml Intake Oral 1000 ml # Voids 1 PHYSICAL EXAM Alert. Oriented to time, place and person. PERRL. EOMI. CN: no focal findings. Muscle tone: normal. Muscle strength: 5/5 DTR: 2+ Plantar reflex: Flexor Gait: not examined in bed. Sensory exam: no abnormal findings. No cerebellar signs elicited. Review of Relevant I have reviewed the following items sintia (where applicable) has been applied. Labs Laboratory Tests Test 05/31/21 22:00 05/31/21 22:20 05/31/21 22:21 06/01/21 08:39 Prothrombin Time 12.8 SEC (11.7-14.0) Prothromb Time International Ratio 1.0 (0.8-1.1) Activated Partial Thromboplast Time 34 SEC (24-38) White Blood Count 8.0 x10^3/uL (4.0-11.0) Red Blood Count 5.33 x10^6/uL (4.30-5.70) Hemoglobin 15.5 g/dL (13.0-17.5) Hematocrit 45.6 % (39.0-53.0) Mean Corpuscular Volume 86 fL (79-100) Mean Corpuscular Hemoglobin 29 pg (25-35) Mean Corpuscular Hemoglobin Concent 34 g/dL (31-37) Red Cell Distribution Width 14.4 % (11.5-14.5) Platelet Count 257 x10^3/uL (140-400) Neutrophils (%) (Auto) 54 % (31-73) Lymphocytes (%) (Auto) 35 % (24-48) Monocytes (%) (Auto) 8 % (0-9) Eosinophils (%) (Auto) 1 % (0-3) Basophils (%) (Auto) 1 % (0-3) Neutrophils # (Auto) 4.3 x10^3/uL (1.8-7.7) Lymphocytes # (Auto) 2.8 x10^3/uL (1.0-4.8) Monocytes # (Auto) 0.7 x10^3/uL (0.0-1.1) Eosinophils # (Auto) 0.1 x10^3/uL (0.0-0.7) Basophils # (Auto) 0.1 x10^3/uL (0.0-0.2) Sodium Level 138 mmol/L (136-145) Potassium Level 4.0 mmol/L (3.5-5.1) Chloride Level 101 mmol/L (98-107) Carbon Dioxide Level 31 mmol/L (21-32) Anion Gap 6 (6-14) Blood Urea Nitrogen 15 mg/dL (8-26) Creatinine 1.3 mg/dL (0.7-1.3) Estimated GFR (Cockcroft-Gault) 56.7 BUN/Creatinine Ratio 12 (6-20) Glucose Level 209 mg/dL (70-99) Calcium Level 9.3 mg/dL (8.5-10.1) Total Bilirubin 0.3 mg/dL (0.2-1.0) Aspartate Amino Transf (AST/SGOT) 15 U/L (15-37) Alanine Aminotransferase (ALT/SGPT) 32 U/L (16-63) Alkaline Phosphatase 118 U/L (46-116) Troponin I Quantitative < 0.017 ng/mL (0.000-0.055) Total Protein 7.4 g/dL (6.4-8.2) Albumin 3.8 g/dL (3.4-5.0) Albumin/Globulin Ratio 1.1 (1.0-1.7) Glucose (Fingerstick) 228 mg/dL (70-99) 144 mg/dL (70-99) Test 06/01/21 10:30 06/01/21 13:08 06/01/21 16:51 06/01/21 20:12 Hemoglobin A1c 7.4 % (4.8-5.6) Triglycerides Level 161 mg/dL (0-150) Cholesterol Level 156 mg/dL (0-200) LDL Cholesterol, Calculated 89 mg/dL (0-100) VLDL Cholesterol, Calculated 32 mg/dL (0-40) Non-HDL Cholesterol Calculated 121 mg/dL (0-129) HDL Cholesterol 35 mg/dL (40-60) Cholesterol/HDL Ratio 4.5 Glucose (Fingerstick) 172 mg/dL (70-99) 149 mg/dL (70-99) 161 mg/dL (70-99) Test 06/02/21 06:10 06/02/21 08:24 White Blood Count 6.6 x10^3/uL (4.0-11.0) Red Blood Count 5.17 x10^6/uL (4.30-5.70) Hemoglobin 15.0 g/dL (13.0-17.5) Hematocrit 44.5 % (39.0-53.0) Mean Corpuscular Volume 86 fL (79-100) Mean Corpuscular Hemoglobin 29 pg (25-35) Mean Corpuscular Hemoglobin Concent 34 g/dL (31-37) Red Cell Distribution Width 14.5 % (11.5-14.5) Platelet Count 225 x10^3/uL (140-400) Neutrophils (%) (Auto) 58 % (31-73) Lymphocytes (%) (Auto) 33 % (24-48) Monocytes (%) (Auto) 7 % (0-9) Eosinophils (%) (Auto) 1 % (0-3) Basophils (%) (Auto) 1 % (0-3) Neutrophils # (Auto) 3.8 x10^3/uL (1.8-7.7) Lymphocytes # (Auto) 2.2 x10^3/uL (1.0-4.8) Monocytes # (Auto) 0.5 x10^3/uL (0.0-1.1) Eosinophils # (Auto) 0.1 x10^3/uL (0.0-0.7) Basophils # (Auto) 0.0 x10^3/uL (0.0-0.2) Sodium Level 141 mmol/L (136-145) Potassium Level 4.3 mmol/L (3.5-5.1) Chloride Level 105 mmol/L (98-107) Carbon Dioxide Level 25 mmol/L (21-32) Anion Gap 11 (6-14) Blood Urea Nitrogen 20 mg/dL (8-26) Creatinine 1.0 mg/dL (0.7-1.3) Estimated GFR (Cockcroft-Gault) 76.7 Glucose Level 131 mg/dL (70-99) Calcium Level 8.9 mg/dL (8.5-10.1) Phosphorus Level 3.7 mg/dL (2.6-4.7) Magnesium Level 1.8 mg/dL (1.8-2.4) Glucose (Fingerstick) 123 mg/dL (70-99) Laboratory Tests Test 06/01/21 10:30 06/01/21 13:08 06/01/21 16:51 06/01/21 20:12 Hemoglobin A1c 7.4 % (4.8-5.6) Triglycerides Level 161 mg/dL (0-150) Cholesterol Level 156 mg/dL (0-200) LDL Cholesterol, Calculated 89 mg/dL (0-100) VLDL Cholesterol, Calculated 32 mg/dL (0-40) Non-HDL Cholesterol Calculated 121 mg/dL (0-129) HDL Cholesterol 35 mg/dL (40-60) Cholesterol/HDL Ratio 4.5 Glucose (Fingerstick) 172 mg/dL (70-99) 149 mg/dL (70-99) 161 mg/dL (70-99) Test 06/02/21 06:10 06/02/21 08:24 White Blood Count 6.6 x10^3/uL (4.0-11.0) Red Blood Count 5.17 x10^6/uL (4.30-5.70) Hemoglobin 15.0 g/dL (13.0-17.5) Hematocrit 44.5 % (39.0-53.0) Mean Corpuscular Volume 86 fL (79-100) Mean Corpuscular Hemoglobin 29 pg (25-35) Mean Corpuscular Hemoglobin Concent 34 g/dL (31-37) Red Cell Distribution Width 14.5 % (11.5-14.5) Platelet Count 225 x10^3/uL (140-400) Neutrophils (%) (Auto) 58 % (31-73) Lymphocytes (%) (Auto) 33 % (24-48) Monocytes (%) (Auto) 7 % (0-9) Eosinophils (%) (Auto) 1 % (0-3) Basophils (%) (Auto) 1 % (0-3) Neutrophils # (Auto) 3.8 x10^3/uL (1.8-7.7) Lymphocytes # (Auto) 2.2 x10^3/uL (1.0-4.8) Monocytes # (Auto) 0.5 x10^3/uL (0.0-1.1) Eosinophils # (Auto) 0.1 x10^3/uL (0.0-0.7) Basophils # (Auto) 0.0 x10^3/uL (0.0-0.2) Sodium Level 141 mmol/L (136-145) Potassium Level 4.3 mmol/L (3.5-5.1) Chloride Level 105 mmol/L (98-107) Carbon Dioxide Level 25 mmol/L (21-32) Anion Gap 11 (6-14) Blood Urea Nitrogen 20 mg/dL (8-26) Creatinine 1.0 mg/dL (0.7-1.3) Estimated GFR (Cockcroft-Gault) 76.7 Glucose Level 131 mg/dL (70-99) Calcium Level 8.9 mg/dL (8.5-10.1) Phosphorus Level 3.7 mg/dL (2.6-4.7) Magnesium Level 1.8 mg/dL (1.8-2.4) Glucose (Fingerstick) 123 mg/dL (70-99) Medications Current Medications Iohexol (Omnipaque 350 Mg/ml) 75 ml 1X ONCE IV Last administered on 05/31/21at 22:56; Start 05/31/21 at 23:00; Stop 05/31/21 at 23:01; Status DC Info (CONTRAST GIVEN -- Rx MONITORING) 1 each PRN DAILY PRN MC SEE COMMENTS; Start 05/31/21 at 23:00; Stop 06/02/21 at 22:59 Sennosides (Senna) 17.2 mg PRN BID PRN PO CONSTIPATION; Start 06/01/21 at 07:45 Docusate Sodium (Colace) 100 mg PRN DAILY PRN PO HARD STOOLS; Start 06/01/21 at 07:45 Ondansetron HCl (Zofran) 4 mg PRN Q6HRS PRN IVP NAUSEA/VOMITING; Start 06/01/21 at 07:45 Insulin Human Lispro (HumaLOG) 0-7 UNITS TIDWMEALS SQ ; Start 06/01/21 at 08:00 Dextrose (Dextrose 50%-Water Syringe) 12.5 gm PRN Q15MIN PRN IV SEE COMMENTS; Start 06/01/21 at 07:45 Acetaminophen (Tylenol) 650 mg PRN Q4HRS PRN PO TEMP OVER 100.4F OR MILD PAIN; Start 06/01/21 at 07:45 Enoxaparin Sodium (Lovenox 40mg Syringe) 40 mg Q24H SQ Last administered on 06/02/21at 08:41; Start 06/01/21 at 08:00 Acetaminophen/ Hydrocodone Bitart (Lortab 5/325) 1 tab PRN Q4HRS PRN PO MILD PAIN 1-3; Start 06/01/21 at 07:45 Acetaminophen/ Hydrocodone Bitart (Lortab 5/325) 2 tab PRN Q4HRS PRN PO MODERATE PAIN, SEVERE PAIN Last administered on 06/01/21at 21:16; Start 06/01/21 at 07:45 Clopidogrel Bisulfate (Plavix) 75 mg DAILYWBKFT PO Last administered on 06/02/21at 08:40; Start 06/01/21 at 08:45 Aspirin (Ecotrin) 81 mg DAILYWBKFT PO Last administered on 06/02/21at 08:39; Start 06/01/21 at 08:45 Atorvastatin Calcium (Lipitor) 40 mg QHS PO Last administered on 06/01/21at 21:16; Start 06/01/21 at 21:00 Carvedilol (Coreg) 6.25 mg BIDWMEALS PO Last administered on 06/02/21at 08:40; Start 06/01/21 at 17:00 Lisinopril (Prinivil) 5 mg DAILY PO Last administered on 06/02/21at 08:40; Start 06/02/21 at 09:00 Glipizide (Glucotrol) 10 mg BIDBFRMEAL PO Last administered on 06/02/21at 08:40; Start 06/01/21 at 17:30 Non-Formulary Medication (Liraglutide (Victoza 2-Chris)) 1.8 mg DAILY SQ ; Start 06/02/21 at 09:00; Stop 06/01/21 at 21:12; Status DC Non-Formulary Medication (Liraglutide (Victoza 2-Chris)) 1.8 mg HS SQ Last administered on 06/01/21at 21:19; Start 06/01/21 at 21:30 Active Scripts Active Reported Januvia (Sitagliptin Phosphate) 100 Mg Tablet 1 Tab PO DAILY Farxiga (Dapagliflozin Propanediol) 10 Mg Tablet 1 Tab PO DAILY Metformin Hcl Er (Metformin Hcl) 500 Mg Tab.er.24h 2 Tab PO BID Glipizide Er (Glipizide) 10 Mg Tab.er.24 1 Tab PO BID Lisinopril 5 Mg Tablet 1 Tab PO DAILY Victoza 2-Chris (Liraglutide) 0.6 Mg/0.1 Ml Pen.injctr 0.1 Mg SQ DAILY Atorvastatin Calcium 40 Mg Tablet 1 Tab PO DAILY Carvedilol (Carvedilol) 3.125 Mg Tablet 6.25 Mg PO BID Aspirin 81 Mg Tab.chew 325 Mg PO DAILY Vitals/I & O Vital Sign - Last 24 Hours 06/01/21 06/01/21 06/01/21 06/01/21 11:08 15:30 17:53 19:00 Temp 97.5 97.6 97.6 97.5 97.6 97.6 Pulse 54 59 91 58 Resp 18 20 19 B/P (MAP) 122/60 (80) 111/68 (82) 128/76 (93) Pulse Ox 98 98 98 O2 Delivery Room Air Room Air Room Air 06/01/21 06/01/21 06/01/21 06/01/21 20:00 21:16 21:46 23:00 Temp 97.7 97.7 Pulse 63 Resp 18 B/P (MAP) 116/63 (80) Pulse Ox 98 98 96 O2 Delivery Room Air Room Air Room Air Room Air 06/02/21 06/02/21 06/02/21 02:37 08:40 08:40 Temp 97.7 97.7 Pulse 64 85 85 Resp 18 B/P (MAP) 104/71 (82) Pulse Ox 96 O2 Delivery Room Air Intake and Output 06/01/21 06/01/21 06/02/21 15:00 23:00 07:00 Intake Total 400 ml 300 ml 300 ml Balance 400 ml 300 ml 300 ml Images MRI BRAIN WO Date: 06/01/2021 2:58 PM Indication: left hemisphere TIA. Right face and arm numbness Comparison: CT 05/31/2021. Technique: Multiplanar multisequence MRI of the brain was performed without intravenous contrast using the standard protocol. Findings: Punctate restricted diffusion in the left frontoparietal region. No acute or chronic hemorrhage. The ventricles are normal in size and configuration without hydrocephalus. Mild scattered FLAIR hyperintensities in the subcortical and periventricular deep white matter, a nonspecific finding, most commonly seen with chronic small vessel ischemic disease. The scalp and calvarium are normal. The pituitary and sella are normal. No Chiari malformation. The visualized upper cervical spine is normal. The visualized orbits and globes are normal. The visualized paranasal sinuses are clear. The mastoid air cells are clear. Normal flow voids within the vertebral, basilar, and internal carotid arteries indicating patency. IMPRESSION: 1. Punctate acute infarct in the left frontoparietal region. No acute hemorrhage. 2. Mild scattered FLAIR hyperintensities in the subcortical and periventricular deep white matter, a nonspecific finding, most commonly seen with chronic small vessel ischemic disease. Echocardiogram: LEFT VENTRICLE The left ventricle is normal size. There is normal left ventricular wall thickness. The left ventricular systolic function is normal. Estimated ejection fraction 55%. There is normal LV segmental wall motion. The left ventricular diastolic function and filling is normal for age. RIGHT VENTRICLE The right ventricle is normal size. There is normal right ventricular wall thickness. The right ventricular systolic function is normal. ATRIA The left atrium size is normal. The right atrium size is normal. The interatrial septum is intact with no evidence for an atrial septal defect or patent foramen ovale as noted on 2-D or Doppler imaging. AORTIC VALVE The aortic valve is normal in structure and function. Doppler and Color Flow revealed no significant aortic regurgitation. There is no significant aortic valvular stenosis. MITRAL VALVE The mitral valve is normal in structure and function. There is no evidence of mitral valve prolapse. There is no mitral valve stenosis. Doppler and Color Flow revealed no mitral valve regurgitation noted. TRICUSPID VALVE The tricuspid valve is normal in structure and function. Doppler and Color Flow revealed trace to mild tricuspid regurgitation. Estimated PAP 30 mmHg. There is no tricuspid valve stenosis. PULMONIC VALVE The pulmonary valve is normal in structure and function. Doppler and Color Flow revealed mild pulmonic valvular regurgitation. GREAT VESSELS The aortic root is normal in size. The ascending aorta is normal in size. The IVC is normal in size and collapses >50% with inspiration. PERICARDIAL EFFUSION There is no evidence of significant pericardial effusion. Critical Notification Critical Value: No <Conclusion> The left ventricular systolic function is normal. Estimated ejection fraction 55%. There is normal LV segmental wall motion. Trace to mild tricuspid regurgitation. Estimated PAP 30 mmHg. There is no evidence of significant pericardial effusion. Justicifation of Admission Dx: Justifications for Admission: Justification of Admission Dx: Yes Stroke - Ischemic: Stroke-Ischemic AKILA HUSSEIN MD Jun 02, 2021 08:47
[2021-06-02] MEDS ORDERED: LISINOPRIL 5 MG TABLET. PO SCH (09:00)
[2021-06-02] MEDS ORDERED: LIRAGLUTIDE 1.8 MG SQ SCH (09:00)
--- NOTE | 2021-06-02 09:38 | PDOC ---
PROGRESS NOTES Date of Service: DATE: 06/02/21 TIME: 09:38 Chief Complaint Chief Complaint IMPRESSION: 1. There is no evidence for acute intracranial hemorrhage. 2. 50 percent stenosis of the left cervical internal carotid artery at the origin secondary to noncalcified atheromatous plaque. 3. There is moderate to severe irregularity of the left vertebral artery which is diminutive in caliber. Left posterior inferior cerebral artery is not definitively visualized. 4. Intracranial atherosclerotic changes as detailed above. Assessment/Plan Assessment/Plan Acute TIA versus ischemic stroke // Punctate acute infarct in the left frontoparietal region. No acute hemorrhage. RULED IN Failure on aspirin, switched to clopidogrel, take both for about a month, reduce aspirin to 81 mg daily during that time, then stop the aspirin Hyperglycemia uncontrolled History of diabetes mellitus type 2 History of dyslipidemia History of hypertension History of CABG CT head negative EKG Onset of symptoms > 4.5 hours NIH 0 Admit to medicine for further workup Neuro consult Pending MRI brain, TTE, carotid U/S vs CTA head/neck if suspecting large anterior circulation occulsion within 24 hours of presentation of symptoms continue telemonitoring for at least 24 hours contine IVF while NPO maintain normoglycemia with goals of 140-180 permissive HTN with goals between 140-180/90-105 for at least 24 hours if tPA administered, maintain BP goals < 180/105 for at least 24 hours continue ASA 81 daily within 48 hours continue high intensity statins pending PT/OT/speech 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 7-14 okay to discharge today PER NEUROLOGY D/C PLANNING 34 MIN Justifications for Admission Justifications for Admission Other Justification History of Present Illness History of Present Illness Chief Complaint: Chief Complain: Right-sided weakness and numbness History of Present Illness: HPI: 56yo right handed Male with PMHx of CABG x 5V in 2013, HTN, DLD, and DM who presents with Right hand weakness and numbness 330pm yesterday that lasted for about 2 hours. He difficulty moving his right hand especially with dexterity and fine motor movements. He also had numbness to the right side of his lips. may have noticed a right facial droop. All symptoms improved by time of arrival. Denies syncope, headache dizziness, palpitations, chest pain, SOB, ABD pain, diarrhea, or lower extremity weakness. CODe stroke activated upon arr ival. Past Medical/Surgical History: PMH/PSH: Past Medical History: Diabetes-Type II, High Cholesterol, Hypertension Past Surgical History: Appendectomy, Coronary Bypass Surgery, nasal- deviated septum Allergies: Allergies: Coded Allergies: canagliflozin (Verified Allergy, Intermediate, 01/26/18) causes increased serum creatinine Family History: Family History: Reviewed with no relevant findings Social History: Social History: Smoking Status: Never Smoker Alcohol Use: None Drug Use: None Current Medications: Current Medications Current Medications Iohexol (Omnipaque 350 Mg/ml) 75 ml 1X ONCE IV Last administered on 05/31/21at 22:56; Start 05/31/21 at 23:00; Stop 05/31/21 at 23:01; Status DC Info (CONTRAST GIVEN -- Rx MONITORING) 1 each PRN DAILY PRN MC SEE COMMENTS; Start 05/31/21 at 23:00; Stop 06/02/21 at 22:59 Active Scripts Active Reported Januvia (Sitagliptin Phosphate) 100 Mg Tablet 100 Mg PO DAILY Victoza 2-Chris (Liraglutide) 0.6 Mg/0.1 Ml Pen.injctr 0.1 Mg SQ DAILY Atorvastatin Calcium 40 Mg Tablet 1 Tab PO DAILY Farxiga (Dapagliflozin Propanediol) 10 Mg Tablet 10 Mg PO DAILY Carvedilol (Carvedilol) 3.125 Mg Tablet 6.25 Mg PO BID Aspirin 81 Mg Tab.chew 325 Mg PO DAILY Glipizide 5 Mg Tablet 20 Mg PO DAILY Metformin Hcl 1,000 Mg Tablet 1,000 Mg PO BID Lisinopril 20 Mg Tablet 20 Mg PO DAILY ROS: Review of Systems Review of System REVIEW OF SYSTEMS: GENERAL: Denies weakness SKIN: No bruising, hair changes or rashes. EYES: No blurred, double or loss of vision. NOSE AND THROAT: No history of nosebleeds, hoarseness or sore throat. HEART: No history of palpitations, chest pain or shortness of breath on exertion. LUNGS: Denies cough, hemoptysis, wheezing or shortness of breath. GASTROINTESTINAL: Denies changes in appetite, nausea, vomiting, diarrhea or constipation. GENITOURINARY: No history of frequency, urgency, hesitancy or nocturia. NEUROLOGIC: Denies history of numbness, tingling, or tremor. PSYCHIATRIC: No history of panic, anxiety or depression. ENDOCRINE: No history of heat or cold intolerance, polyuria or polydipsia. EXTREMITIES: Denies joint pain, pain on walking or stiffness. Vitals Vitals Vital Signs Date Time Temp Pulse Resp B/P (MAP) Pulse Ox O2 Delivery O2 Flow Rate FiO2 06/02/21 08:40 85 06/02/21 07:00 97.9 16 117/71 (86) 95 Room Air 97.9 Physical Exam Physical Exam Physcial Exam: GEN: No apparent distress. Alert and oriented HEENT: Normal cephalic, atraumatic, external auditory canals are patent EYES: Extraocular muscles are intact, pupil are equally round and reactive to light and accommodation MUSCULOSKELETAL: Well developed , well nourished, good range of motion ENDOCRINE: No thyromegaly was palpated LYMPHATICS: No cervical chain or axillary nodes were noted HEMATOPOIETIC: No bruising NECK: Supple, no JVD, no thyromegaly was noted LUNGS: Clear to auscultation in all lung mcrae without rhonchi or wheezing HEART: RRR, S!, S2 present. Peripheral pulses intact, no obvious murmurs noted ABDOMEN: Soft, nontender. Positive bowel sounds, no organomegaly, normal bowel sounds EXTREMITIES: Without clubbing, cyanosis, or edema. Pedal pulses intact. Negative Homans sign NEUROLOGIC: Normal speech and tone. A&O x 3, moves all extremities, no obvious focal deficits PSYCHIATRIC: Normal affect, normal mood. Stable SKIN: No ulcerations or rashes, good skin turgor, no jaundice VASCULAR: Good capillary refill, neurovascular bundle appears to be intact General: Alert, Oriented X3, Cooperative, No acute distress Heart: Regular rate, No murmurs Lungs: Clear Abdomen: Normal bowel sounds, Soft Extremities: No clubbing, No cyanosis Labs LABS One or more of the following individualized dose reduction techniques were utilized for this examination: 1. Automated exposure control 2. Adjustment of the mA and/or kV according to patient size 3. Use of iterative reconstruction technique CTA STROKE HEAD/NECK w/o 05/31/2021 10:37 PM INDICATION: Code stroke. Right-sided numbness COMPARISON: CT head 05/31/2021 TECHNIQUE: Multiple axial CT images of the head and neck were obtained after the intravenous administration of nonionic contrast. Coronal and sagittal reformats are provided. Maximum intensity projection images are provided. Stenosis calculations for CT, MR, and conventional angiography are based upon measurements of the distal ICA diameter in accordance with the NASCET methodology. Stenosis calculations for carotid ultrasound studies are derived from validated velocity criteria which are known to correlate with the NASCET methodology. FINDINGS: Ventricles, sulci and basal cisterns are normal in appearance. [place]-white matter differentiation is preserved. There is no mass, mass effect or midline shift. Posterior fossa is normal in appearance. Sella and suprasellar cistern appear normal. Orbits are normal in appearance with exception of bilateral lens replacement. Scalp and calvaria appear intact. Paranasal sinuses are well aerated. Mastoid air cells are well aerated. 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 Visualized portions of lungs are clear. Thyroid gland is normal in appearance. Neck soft tissues are normal in appearance. No pathologically enlarged cervical lymphadenopathy. Pharynx and larynx appear intact. Vascular findings: There is a normal three-vessel aortic arch. Origins of the brachiocephalic vessels are widely patent. Right common carotid artery is normal in course and caliber. Mild calcified plaque identified at the right carotid bifurcation. No significant stenosis of the right cervical internal carotid artery. External carotid artery is widely patent. There is intimal thickening of the distal left common carotid artery. There is 5 mm thick soft plaque at the left carotid bifurcation. There is 50 percent stenosis of proximal left cervical internal carotid artery secondary to noncalcified atheromatous plaque. There is moderate to severe stenosis of the origin of the left external carotid artery. Right vertebral artery is normal in course and caliber. Left vertebral artery is diminutive in caliber with multifocal stenosis. Severe irregularity of the intracranial segment left vertebral artery. Left posterior inferior cerebral artery is not definitively visualized. Intracranial segments of internal carotid arteries are normal in course and caliber. There is mild calcified atheromatous plaque involving the cavernous seg ments without significant stenosis. Origins of the ophthalmic segments of the internal carotid artery appears widely patent. Middle mild to moderate irregularity of the left middle cerebral artery territory. Mild irregularity of the right middle cerebral artery territory. Mild irregularity of the right A1 segment. Anterior cerebral arteries are normal in course and caliber. Anterior communicating artery is visualized. Basilar artery is normal in course and caliber. Superior cerebellar arteries are widely patent. Posterior cerebral arteries are normal in course and caliber. There is no aneurysm, vascular malformation or large vessel occlusion involving eyak of [place]. Superior sagittal sinus is patent. IMPRESSION: 1. There is no evidence for acute intracranial hemorrhage. 2. 50 percent stenosis of the left cervical internal carotid artery at the origin secondary to noncalcified atheromatous plaque. 3. There is moderate to severe irregularity of the left vertebral artery which is diminutive in caliber. Left posterior inferior cerebral artery is not definitively visualized. 4. Intracranial atherosclerotic changes as detailed above. FOR INTERNAL CODING PURPOSES Critical result: Findings discussed with Dr. Segura at 05/31/2021 1053PM. RESULT CODE: (C) MRI BRAIN WO Date: 06/01/2021 2:58 PM Indication: left hemisphere TIA. Right face and arm numbness Comparison: CT 05/31/2021. Technique: Multiplanar multisequence MRI of the brain was performed without intravenous contrast using the standard protocol. Findings: Punctate restricted diffusion in the left frontoparietal region. No acute or chronic hemorrhage. The ventricles are normal in size and configuration without hydrocephalus. Mild scattered FLAIR hyperintensities in the subcortical and periventricular deep white matter, a nonspecific finding, most commonly seen with chronic small vessel ischemic disease. The scalp and calvarium are normal. The pituitary and sella are normal. No Chiari malformation. The visualized upper cervical spine is normal. The visualized orbits and globes are normal. The visualized paranasal sinuses are clear. The mastoid air cells are clear. Normal flow voids within the vertebral, basilar, and internal carotid arteries indicating patency. IMPRESSION: 1. Punctate acute infarct in the left frontoparietal region. No acute hemorrhage. 2. Mild scattered FLAIR hyperintensities in the subcortical and periventricular deep white matter, a nonspecific finding, most commonly seen with chronic small vessel ischemic disease. FOR INTERNAL CODING PURPOSES Critical result: Findings discussed with the patient's nurse, Merary, at 06/01/2021 3:52 PM. RESULT CODE: (C) Electronically signed by: Emanuel Cisneros MD (06/01/2021 3:53 PM) [id number] Laboratory Tests Test 06/01/21 10:30 06/01/21 13:08 06/01/21 16:51 7/13/21 20:12 Hemoglobin A1c 7.4 % (4.8-5.6) Triglycerides Level 161 mg/dL (0-150) Cholesterol Level 156 mg/dL (0-200) LDL Cholesterol, Calculated 89 mg/dL (0-100) VLDL Cholesterol, Calculated 32 mg/dL (0-40) Non-HDL Cholesterol Calculated 121 mg/dL (0-129) HDL Cholesterol 35 mg/dL (40-60) Cholesterol/HDL Ratio 4.5 Glucose (Fingerstick) 172 mg/dL (70-99) 149 mg/dL (70-99) 161 mg/dL (70-99) Test 06/02/21 06:10 06/02/21 08:24 White Blood Count 6.6 x10^3/uL (4.0-11.0) Red Blood Count 5.17 x10^6/uL (4.30-5.70) Hemoglobin 15.0 g/dL (13.0-17.5) Hematocrit 44.5 % (39.0-53.0) Mean Corpuscular Volume 86 fL (79-100) Mean Corpuscular Hemoglobin 29 pg (25-35) Mean Corpuscular Hemoglobin Concent 34 g/dL (31-37) Red Cell Distribution Width 14.5 % (11.5-14.5) Platelet Count 225 x10^3/uL (140-400) Neutrophils (%) (Auto) 58 % (31-73) Lymphocytes (%) (Auto) 33 % (24-48) Monocytes (%) (Auto) 7 % (0-9) Eosinophils (%) (Auto) 1 % (0-3) Basophils (%) (Auto) 1 % (0-3) Neutrophils # (Auto) 3.8 x10^3/uL (1.8-7.7) Lymphocytes # (Auto) 2.2 x10^3/uL (1.0-4.8) Monocytes # (Auto) 0.5 x10^3/uL (0.0-1.1) Eosinophils # (Auto) 0.1 x10^3/uL (0.0-0.7) Basophils # (Auto) 0.0 x10^3/uL (0.0-0.2) Sodium Level 141 mmol/L (136-145) Potassium Level 4.3 mmol/L (3.5-5.1) Chloride Level 105 mmol/L (98-107) Carbon Dioxide Level 25 mmol/L (21-32) Anion Gap 11 (6-14) Blood Urea Nitrogen 20 mg/dL (8-26) Creatinine 1.0 mg/dL (0.7-1.3) Estimated GFR (Cockcroft-Gault) 76.7 Glucose Level 131 mg/dL (70-99) Calcium Level 8.9 mg/dL (8.5-10.1) Phosphorus Level 3.7 mg/dL (2.6-4.7) Magnesium Level 1.8 mg/dL (1.8-2.4) Glucose (Fingerstick) 123 mg/dL (70-99) Assessment and Plan Assessmemt and Plan Problems Medical Problems: (1) TIA (transient ischemic attack) Status: Acute Comment Review of Relevant I have reviewed the following items sintia (where applicable) has been applied. Labs Laboratory Tests Test 05/31/21 22:00 05/31/21 22:20 05/31/21 22:21 06/01/21 08:39 Prothrombin Time 12.8 SEC (11.7-14.0) Prothromb Time International Ratio 1.0 (0.8-1.1) Activated Partial Thromboplast Time 34 SEC (24-38) White Blood Count 8.0 x10^3/uL (4.0-11.0) Red Blood Count 5.33 x10^6/uL (4.30-5.70) Hemoglobin 15.5 g/dL (13.0-17.5) Hematocrit 45.6 % (39.0-53.0) Mean Corpuscular Volume 86 fL (79-100) Mean Corpuscular Hemoglobin 29 pg (25-35) Mean Corpuscular Hemoglobin Concent 34 g/dL (31-37) Red Cell Distribution Width 14.4 % (11.5-14.5) Platelet Count 257 x10^3/uL (140-400) Neutrophils (%) (Auto) 54 % (31-73) Lymphocytes (%) (Auto) 35 % (24-48) Monocytes (%) (Auto) 8 % (0-9) Eosinophils (%) (Auto) 1 % (0-3) Basophils (%) (Auto) 1 % (0-3) Neutrophils # (Auto) 4.3 x10^3/uL (1.8-7.7) Lymphocytes # (Auto) 2.8 x10^3/uL (1.0-4.8) Monocytes # (Auto) 0.7 x10^3/uL (0.0-1.1) Eosinophils # (Auto) 0.1 x10^3/uL (0.0-0.7) Basophils # (Auto) 0.1 x10^3/uL (0.0-0.2) Sodium Level 138 mmol/L (136-145) Potassium Level 4.0 mmol/L (3.5-5.1) Chloride Level 101 mmol/L (98-107) Carbon Dioxide Level 31 mmol/L (21-32) Anion Gap 6 (6-14) Blood Urea Nitrogen 15 mg/dL (8-26) Creatinine 1.3 mg/dL (0.7-1.3) Estimated GFR (Cockcroft-Gault) 56.7 BUN/Creatinine Ratio 12 (6-20) Glucose Level 209 mg/dL (70-99) Calcium Level 9.3 mg/dL (8.5-10.1) Total Bilirubin 0.3 mg/dL (0.2-1.0) Aspartate Amino Transf (AST/SGOT) 15 U/L (15-37) Alanine Aminotransferase (ALT/SGPT) 32 U/L (16-63) Alkaline Phosphatase 118 U/L (46-116) Troponin I Quantitative < 0.017 ng/mL (0.000-0.055) Total Protein 7.4 g/dL (6.4-8.2) Albumin 3.8 g/dL (3.4-5.0) Albumin/Globulin Ratio 1.1 (1.0-1.7) Glucose (Fingerstick) 228 mg/dL (70-99) 144 mg/dL (70-99) Test 06/01/21 10:30 06/01/21 13:08 06/01/21 16:51 06/01/21 20:12 Hemoglobin A1c 7.4 % (4.8-5.6) Triglycerides Level 161 mg/dL (0-150) Cholesterol Level 156 mg/dL (0-200) LDL Cholesterol, Calculated 89 mg/dL (0-100) VLDL Cholesterol, Calculated 32 mg/dL (0-40) Non-HDL Cholesterol Calculated 121 mg/dL (0-129) HDL Cholesterol 35 mg/dL (40-60) Cholesterol/HDL Ratio 4.5 Glucose (Fingerstick) 172 mg/dL (70-99) 149 mg/dL (70-99) 161 mg/dL (70-99) Test 06/02/21 06:10 06/02/21 08:24 White Blood Count 6.6 x10^3/uL (4.0-11.0) Red Blood Count 5.17 x10^6/uL (4.30-5.70) Hemoglobin 15.0 g/dL (13.0-17.5) Hematocrit 44.5 % (39.0-53.0) Mean Corpuscular Volume 86 fL (79-100) Mean Corpuscular Hemoglobin 29 pg (25-35) Mean Corpuscular Hemoglobin Concent 34 g/dL (31-37) Red Cell Distribution Width 14.5 % (11.5-14.5) Platelet Count 225 x10^3/uL (140-400) Neutrophils (%) (Auto) 58 % (31-73) Lymphocytes (%) (Auto) 33 % (24-48) Monocytes (%) (Auto) 7 % (0-9) Eosinophils (%) (Auto) 1 % (0-3) Basophils (%) (Auto) 1 % (0-3) Neutrophils # (Auto) 3.8 x10^3/uL (1.8-7.7) Lymphocytes # (Auto) 2.2 x10^3/uL (1.0-4.8) Monocytes # (Auto) 0.5 x10^3/uL (0.0-1.1) Eosinophils # (Auto) 0.1 x10^3/uL (0.0-0.7) Basophils # (Auto) 0.0 x10^3/uL (0.0-0.2) Sodium Level 141 mmol/L (136-145) Potassium Level 4.3 mmol/L (3.5-5.1) Chloride Level 105 mmol/L (98-107) Carbon Dioxide Level 25 mmol/L (21-32) Anion Gap 11 (6-14) Blood Urea Nitrogen 20 mg/dL (8-26) Creatinine 1.0 mg/dL (0.7-1.3) Estimated GFR (Cockcroft-Gault) 76.7 Glucose Level 131 mg/dL (70-99) Calcium Level 8.9 mg/dL (8.5-10.1) Phosphorus Level 3.7 mg/dL (2.6-4.7) Magnesium Level 1.8 mg/dL (1.8-2.4) Glucose (Fingerstick) 123 mg/dL (70-99) Laboratory Tests Test 06/01/21 10:30 06/01/21 13:08 06/01/21 16:51 06/01/21 20:12 Hemoglobin A1c 7.4 % (4.8-5.6) Triglycerides Level 161 mg/dL (0-150) Cholesterol Level 156 mg/dL (0-200) LDL Cholesterol, Calculated 89 mg/dL (0-100) VLDL Cholesterol, Calculated 32 mg/dL (0-40) Non-HDL Cholesterol Calculated 121 mg/dL (0-129) HDL Cholesterol 35 mg/dL (40-60) Cholesterol/HDL Ratio 4.5 Glucose (Fingerstick) 172 mg/dL (70-99) 149 mg/dL (70-99) 161 mg/dL (70-99) Test 06/02/21 06:10 06/02/21 08:24 White Blood Count 6.6 x10^3/uL (4.0-11.0) Red Blood Count 5.17 x10^6/uL (4.30-5.70) Hemoglobin 15.0 g/dL (13.0-17.5) Hematocrit 44.5 % (39.0-53.0) Mean Corpuscular Volume 86 fL (79-100) Mean Corpuscular Hemoglobin 29 pg (25-35) Mean Corpuscular Hemoglobin Concent 34 g/dL (31-37) Red Cell Distribution Width 14.5 % (11.5-14.5) Platelet Count 225 x10^3/uL (140-400) Neutrophils (%) (Auto) 58 % (31-73) Lymphocytes (%) (Auto) 33 % (24-48) Monocytes (%) (Auto) 7 % (0-9) Eosinophils (%) (Auto) 1 % (0-3) Basophils (%) (Auto) 1 % (0-3) Neutrophils # (Auto) 3.8 x10^3/uL (1.8-7.7) Lymphocytes # (Auto) 2.2 x10^3/uL (1.0-4.8) Monocytes # (Auto) 0.5 x10^3/uL (0.0-1.1) Eosinophils # (Auto) 0.1 x10^3/uL (0.0-0.7) Basophils # (Auto) 0.0 x10^3/uL (0.0-0.2) Sodium Level 141 mmol/L (136-145) Potassium Level 4.3 mmol/L (3.5-5.1) Chloride Level 105 mmol/L (98-107) Carbon Dioxide Level 25 mmol/L (21-32) Anion Gap 11 (6-14) Blood Urea Nitrogen 20 mg/dL (8-26) Creatinine 1.0 mg/dL (0.7-1.3) Estimated GFR (Cockcroft-Gault) 76.7 Glucose Level 131 mg/dL (70-99) Calcium Level 8.9 mg/dL (8.5-10.1) Phosphorus Level 3.7 mg/dL (2.6-4.7) Magnesium Level 1.8 mg/dL (1.8-2.4) Glucose (Fingerstick) 123 mg/dL (70-99) Medications Current Medications Iohexol (Omnipaque 350 Mg/ml) 75 ml 1X ONCE IV Last administered on 05/31/21at 22:56; Start 05/31/21 at 23:00; Stop 05/31/21 at 23:01; Status DC Info (CONTRAST GIVEN -- Rx MONITORING) 1 each PRN DAILY PRN MC SEE COMMENTS; Start 05/31/21 at 23:00; Stop 06/02/21 at 22:59 Sennosides (Senna) 17.2 mg PRN BID PRN PO CONSTIPATION; Start 06/01/21 at 07:45 Docusate Sodium (Colace) 100 mg PRN DAILY PRN PO HARD STOOLS; Start 06/01/21 at 07:45 Ondansetron HCl (Zofran) 4 mg PRN Q6HRS PRN IVP NAUSEA/VOMITING; Start 06/01/21 at 07:45 Insulin Human Lispro (HumaLOG) 0-7 UNITS TIDWMEALS SQ ; Start 06/01/21 at 08:00 Dextrose (Dextrose 50%-Water Syringe) 12.5 gm PRN Q15MIN PRN IV SEE COMMENTS; Start 06/01/21 at 07:45 Acetaminophen (Tylenol) 650 mg PRN Q4HRS PRN PO TEMP OVER 100.4F OR MILD PAIN; Start 06/01/21 at 07:45 Enoxaparin Sodium (Lovenox 40mg Syringe) 40 mg Q24H SQ Last administered on 06/02/21at 08:41; Start 06/01/21 at 08:00 Acetaminophen/ Hydrocodone Bitart (Lortab 5/325) 1 tab PRN Q4HRS PRN PO MILD PAIN 1-3; Start 06/01/21 at 07:45 Acetaminophen/ Hydrocodone Bitart (Lortab 5/325) 2 tab PRN Q4HRS PRN PO MODERATE PAIN, SEVERE PAIN Last administered on 06/01/21at 21:16; Start 06/01/21 at 07:45 Clopidogrel Bisulfate (Plavix) 75 mg DAILYWBKFT PO Last administered on 06/02/21at 08:40; Start 06/01/21 at 08:45 Aspirin (Ecotrin) 81 mg DAILYWBKFT PO Last administered on 06/02/21at 08:39; Start 06/01/21 at 08:45 Atorvastatin Calcium (Lipitor) 40 mg QHS PO Last administered on 06/01/21at 21:16; Start 06/01/21 at 21:00 Carvedilol (Coreg) 6.25 mg BIDWMEALS PO Last administered on 06/02/21at 08:40; Start 06/01/21 at 17:00 Lisinopril (Prinivil) 5 mg DAILY PO Last administered on 06/02/21at 08:40; Start 06/02/21 at 09:00 Glipizide (Glucotrol) 10 mg BIDBFRMEAL PO Last administered on 06/02/21at 08:40; Start 06/01/21 at 17:30 Non-Formulary Medication (Liraglutide (Victoza 2-Chris)) 1.8 mg DAILY SQ ; Start 06/02/21 at 09:00; Stop 06/01/21 at 21:12; Status DC Non-Formulary Medication (Liraglutide (Victoza 2-Chris)) 1.8 mg HS SQ Last administered on 06/01/21at 21:19; Start 06/01/21 at 21:30 Active Scripts Active Reported Januvia (Sitagliptin Phosphate) 100 Mg Tablet 1 Tab PO DAILY Farxiga (Dapagliflozin Propanediol) 10 Mg Tablet 1 Tab PO DAILY Metformin Hcl Er (Metformin Hcl) 500 Mg Tab.er.24h 2 Tab PO BID Glipizide Er (Glipizide) 10 Mg Tab.er.24 1 Tab PO BID Lisinopril 5 Mg Tablet 1 Tab PO DAILY Victoza 2-Chris (Liraglutide) 0.6 Mg/0.1 Ml Pen.injctr 0.1 Mg SQ DAILY Atorvastatin Calcium 40 Mg Tablet 1 Tab PO DAILY Carvedilol (Carvedilol) 3.125 Mg Tablet 6.25 Mg PO BID Aspirin 81 Mg Tab.chew 325 Mg PO DAILY Vitals/I & O Vital Sign - Last 24 Hours 06/01/21 06/01/21 06/01/21 06/01/21 11:08 15:30 17:53 19:00 Temp 97.5 97.6 97.6 97.5 97.6 97.6 Pulse 54 59 91 58 Resp 18 20 19 B/P (MAP) 122/60 (80) 111/68 (82) 128/76 (93) Pulse Ox 98 98 98 O2 Delivery Room Air Room Air Room Air 06/01/21 06/01/21 06/01/21 06/01/21 20:00 21:16 21:46 23:00 Temp 97.7 97.7 Pulse 63 Resp 18 B/P (MAP) 116/63 (80) Pulse Ox 98 98 96 O2 Delivery Room Air Room Air Room Air Room Air 06/02/21 06/02/21 06/02/21 06/02/21 02:37 07:00 08:40 08:40 Temp 97.7 97.9 97.7 97.9 Pulse 64 63 85 85 Resp 18 16 B/P (MAP) 104/71 (82) 117/71 (86) Pulse Ox 96 95 O2 Delivery Room Air Room Air Intake and Output 06/01/21 06/01/21 06/02/21 15:00 23:00 07:00 Intake Total 400 ml 300 ml 300 ml Balance 400 ml 300 ml 300 ml Justicifation of Admission Dx: Justifications for Admission: Justification of Admission Dx: Yes Stroke - Ischemic: Stroke-Ischemic CHARLA STOVALL MD Jun 02, 2021 09:38
--- NOTE | 2021-06-02 10:46 | PDOC3 ---
Discharge Summary Date of Admission: Jun 01, 2021 Date of Discharge: Jun 02, 2021 Follow-Up: 3-5 days Admitting Diagnosis comment: HPI 56yo right handed Male with PMHx of CABG x 5V in 2013, HTN, DLD, and DM who presents with Right hand weakness and numbness 330pm yesterday that lasted for about 2 hours. He difficulty moving his right hand especially with dexterity and fine motor movements. He also had numbness to the right side of his lips. may have noticed a right facial droop. All symptoms improved by time of arrival. Denies syncope, headache dizziness, palpitations, chest pain, SOB, ABD pain, diarrhea, or lower extremity weakness. CODe stroke activated upon arrival. PROCEDURES MRI HEAD, CTA HEAD, NECK, CVC MONITOR COMPLICATIONS NONE D/C CONDITION GOOD CONSULTS NEUROLOGY D/C MEDS SEE MAR PROGNOSIS GOOD WITH COMPLIANCE DISCHARGE DX Assessment/Plan Acute ischemic stroke // Punctate acute infarct in the left frontoparietal region. No acute hemorrhage. RULED IN Failure on aspirin, switched to clopidogrel, take both for about a month, reduce aspirin to 81 mg daily during that time, then stop the aspirin Hyperglycemia uncontrolled History of diabetes mellitus type 2 History of dyslipidemia History of hypertension History of CABG CT head negative EKG Onset of symptoms > 4.5 hours NIH 0 Admit to medicine for further workup Neuro consult Pending MRI brain, TTE, carotid U/S vs CTA head/neck if suspecting large anterior circulation occulsion within 24 hours of presentation of symptoms continue telemonitoring for at least 24 hours contine IVF while NPO maintain normoglycemia with goals of 140-180 permissive HTN with goals between 140-180/90-105 for at least 24 hours if tPA administered, maintain BP goals < 180/105 for at least 24 hours continue ASA 81 daily within 48 hours continue high intensity statins pending PT/OT/speech 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 7-14 okay to discharge today PER NEUROLOGY D/C PLANNING 34 MIN Justifications for Admission Justifications for Admission Other Justification History of Present Illness History of Present Illness Chief Complaint: Chief Complain: Right-sided weakness and numbness History of Present Illness: HPI: 56yo right handed Male with PMHx of CABG x 5V in 2014, HTN, DLD, and DM who presents with Right hand weakness and numbness 330pm yesterday that lasted for about 2 hours. He difficulty moving his right hand especially with dexterity and fine motor movements. He also had numbness to the right side of his lips. may have noticed a right facial droop. All symptoms improved by time of arrival. Denies syncope, headache dizziness, palpitations, chest pain, SOB, ABD pain, diarrhea, or lower extremity weakness. CODe stroke activated upon arrival. Past Medical/Surgical History: PMH/PSH: Past Medical History: Diabetes-Type II, High Cholesterol, Hypertension Past Surgical History: Appendectomy, Coronary Bypass Surgery, nasal- deviated septum Allergies: Allergies: Coded Allergies: canagliflozin (Verified Allergy, Intermediate, 01/26/18) causes increased serum creatinine Family History: Family History: Reviewed with no relevant findings Social History: Social History: Smoking Status: Never Smoker Alcohol Use: None Drug Use: None Current Medications: Current Medications Current Medications Iohexol (Omnipaque 350 Mg/ml) 75 ml 1X ONCE IV Last administered on 05/31/21at 22:56; Start 05/31/21 at 23:00; Stop 05/31/21 at 23:01; Status DC Info (CONTRAST GIVEN -- Rx MONITORING) 1 each PRN DAILY PRN MC SEE COMMENTS; Start 05/31/21 at 23:00; Stop 06/02/21 at 22:59 Active Scripts Active Reported Januvia (Sitagliptin Phosphate) 100 Mg Tablet 100 Mg PO DAILY Victoza 2-Chris (Liraglutide) 0.6 Mg/0.1 Ml Pen.injctr 0.1 Mg SQ DAILY Atorvastatin Calcium 40 Mg Tablet 1 Tab PO DAILY Farxiga (Dapagliflozin Propanediol) 10 Mg Tablet 10 Mg PO DAILY Carvedilol (Carvedilol) 3.125 Mg Tablet 6.25 Mg PO BID Aspirin 81 Mg Tab.chew 325 Mg PO DAILY Glipizide 5 Mg Tablet 20 Mg PO DAILY Metformin Hcl 1,000 Mg Tablet 1,000 Mg PO BID Lisinopril 20 Mg Tablet 20 Mg PO DAILY ROS: Review of Systems Review of System REVIEW OF SYSTEMS: GENERAL: Denies weakness SKIN: No bruising, hair changes or rashes. EYES: No blurred, double or loss of vision. NOSE AND THROAT: No history of nosebleeds, hoarseness or sore throat. HEART: No history of palpitations, chest pain or shortness of breath on exertion. LUNGS: Denies cough, hemoptysis, wheezing or shortness of breath. GASTROINTESTINAL: Denies changes in appetite, nausea, vomiting, diarrhea or constipation. GENITOURINARY: No history of frequency, urgency, hesitancy or nocturia. NEUROLOGIC: Denies history of numbness, tingling, or tremor. PSYCHIATRIC: No history of panic, anxiety or depression. ENDOCRINE: No history of heat or cold intolerance, polyuria or polydipsia. EXTREMITIES: Denies joint pain, pain on walking or stiffness. Vitals Vitals Vital Signs Date Time Temp Pulse Resp B/P (MAP) Pulse Ox O2 Delivery O2 Flow Rate FiO2 06/02/21 08:40 85 06/02/21 07:00 97.9 16 117/71 (86) 95 Room Air 97.9 Physical Exam Physical Exam Physcial Exam: GEN: No apparent distress. Alert and oriented HEENT: Normal cephalic, atraumatic, external auditory canals are patent EYES: Extraocular muscles are intact, pupil are equally round and reactive to light and accommodation MUSCULOSKELETAL: Well developed , well nourished, good range of motion ENDOCRINE: No thyromegaly was palpated LYMPHATICS: No cervical chain or axillary nodes were noted HEMATOPOIETIC: No bruising NECK: Supple, no JVD, no thyromegaly was noted LUNGS: Clear to auscultation in all lung mcrae without rhonchi or wheezing HEART: RRR, S!, S2 present. Peripheral pulses intact, no obvious murmurs noted ABDOMEN: Soft, nontender. Positive bowel sounds, no organomegaly, normal bowel sounds EXTREMITIES: Without clubbing, cyanosis, or edema. Pedal pulses intact. Negative Homans sign NEUROLOGIC: Normal speech and tone. A&O x 3, moves all extremities, no obvious focal deficits PSYCHIATRIC: Normal affect, normal mood. Stable SKIN: No ulcerations or rashes, good skin turgor, no jaundice VASCULAR: Good capillary refill, neurovascular bundle appears to be intact General: Alert, Oriented X3, Cooperative, No acute distress Heart: Regular rate, No murmurs Lungs: Clear Abdomen: Normal bowel sounds, Soft Extremities: No clubbing, No cyanosis Labs LABS One or more of the following individualized dose reduction techniques were utilized for this examination: 1. Automated exposure control 2. Adjustment of the mA and/or kV according to patient size 3. Use of iterative reconstruction technique CTA STROKE HEAD/NECK w/o 05/31/2021 10:37 PM INDICATION: Code stroke. Right-sided numbness COMPARISON: CT head 05/31/2021 TECHNIQUE: Multiple axial CT images of the head and neck were obtained after the intravenous administration of nonionic contrast. Coronal and sagittal reformats are provided. Maximum intensity projection images are provided. Stenosis calculations for CT, MR, and conventional angiography are based upon measurements of the distal ICA diameter in accordance with the NASCET methodology. Stenosis calculations for carotid ultrasound studies are derived from validated velocity criteria which are known to correlate with the NASCET methodology. FINDINGS: Ventricles, sulci and basal cisterns are normal in appearance. [place]-white matter differentiation is preserved. There is no mass, mass effect or midline shift. Posterior fossa is normal in appearance. Sella and suprasellar cistern appear normal. Orbits are normal in appearance with exception of bilateral lens replacement. Scalp and calvaria appear intact. Paranasal sinuses are well aerated. Mastoid air cells are well aerated. 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 Visualized portions of lungs are clear. Thyroid gland is normal in appearance. Neck soft tissues are normal in appearance. No pathologically enlarged cervical lymphadenopathy. Pharynx and larynx appear intact. Vascular findings: There is a normal three-vessel aortic arch. Origins of the brachiocephalic vessels are widely patent. Right common carotid artery is normal in course and caliber. Mild calcified plaque identified at the right carotid bifurcation. No significant stenosis of the right cervical internal carotid artery. External carotid artery is widely patent. There is intimal thickening of the distal left common carotid artery. There is 5 mm thick soft plaque at the left carotid bifurcation. There is 50 percent stenosis of proximal left cervical internal carotid artery secondary to noncalcified atheromatous plaque. There is moderate to severe stenosis of the origin of the left external carotid artery. Right vertebral artery is normal in course and caliber. Left vertebral artery is diminutive in caliber with multifocal stenosis. Severe irregularity of the intracranial segment left vertebral artery. Left posterior inferior cerebral artery is not definitively visualized. Intracranial segments of internal carotid arteries are normal in course and caliber. There is mild calcified atheromatous plaque involving the cavernous segments without significant stenosis. Origins of the ophthalmic segments of the internal carotid artery appears widely patent. Middle mild to moderate irregularity of the left middle cerebral artery territory. Mild irregularity of the right middle cerebral artery territory. Mild irregularity of the right A1 segment. Anterior cerebral arteries are normal in course and caliber. Anterior communicating artery is visualized. Basilar artery is normal in course and caliber. Superior cerebellar arteries are widely patent. Posterior cerebral arteries are normal in course and caliber. There is no aneurysm, vascular malformation or large vessel occlusion involving [place] of [place]. Superior sagittal sinus is patent. IMPRESSION: 1. There is no evidence for acute intracranial hemorrhage. 2. 50 percent stenosis of the left cervical internal carotid artery at the origin secondary to noncalcified atheromatous plaque. 3. There is moderate to severe irregularity of the left vertebral artery which is diminutive in caliber. Left posterior inferior cerebral artery is not definitively visualized. 4. Intracranial atherosclerotic changes as detailed above. FOR INTERNAL CODING PURPOSES Critical result: Findings discussed with Dr. Segura at 05/31/2021 1053PM. RESULT CODE: (C) MRI BRAIN WO Date: 06/01/2021 2:58 PM Indication: left hemisphere TIA. Right face and arm numbness Comparison: CT 05/31/2021. Technique: Multiplanar multisequence MRI of the brain was performed without intravenous contrast using the standard protocol. Findings: Punctate restricted diffusion in the left frontoparietal region. No acute or chronic hemorrhage. The ventricles are normal in size and configuration without hydrocephalus. Mild scattered FLAIR hyperintensities in the subcortical and periventricular deep white matter, a nonspecific finding, most commonly seen with chronic small vessel ischemic disease. The scalp and calvarium are normal. The pituitary and sella are normal. No Chiari malformation. The visualized upper cervical spine is normal. The visualized orbits and globes are normal. The visualized paranasal sinuses are clear. The mastoid air cells are clear. Normal flow voids within the vertebral, basilar, and internal carotid arteries indicating patency. IMPRESSION: 1. Punctate acute infarct in the left frontoparietal region. No acute hemo rrhage. 2. Mild scattered FLAIR hyperintensities in the subcortical and periventricular deep white matter, a nonspecific finding, most commonly seen with chronic small vessel ischemic disease. FOR INTERNAL CODING PURPOSES Critical result: Findings discussed with the patient's nurse, Merary, at 06/01/2021 3:52 PM. RESULT CODE: (C) FINAL DIAGNOSIS Problems Medical Problems: (1) TIA (transient ischemic attack) Status: Acute Brief Hospital Course Mr. Angelo is a 56 old [sex] who presented with [ACUTE CVA ] CONDITION AT DISCHARGE: Improved Discharge Medications Current Medications Iohexol (Omnipaque 350 Mg/ml) 75 ml 1X ONCE IV Last administered on 05/31/21at 22:56; Start 05/31/21 at 23:00; Stop 05/31/21 at 23:01; Status DC Info (CONTRAST GIVEN -- Rx MONITORING) 1 each PRN DAILY PRN MC SEE COMMENTS; Start 05/31/21 at 23:00; Stop 06/02/21 at 22:59 Sennosides (Senna) 17.2 mg PRN BID PRN PO CONSTIPATION; Start 06/01/21 at 07:45 Docusate Sodium (Colace) 100 mg PRN DAILY PRN PO HARD STOOLS; Start 06/01/21 at 07:45 Ondansetron HCl (Zofran) 4 mg PRN Q6HRS PRN IVP NAUSEA/VOMITING; Start 06/01/21 at 07:45 Insulin Human Lispro (HumaLOG) 0-7 UNITS TIDWMEALS SQ ; Start 06/01/21 at 08:00 Dextrose (Dextrose 50%-Water Syringe) 12.5 gm PRN Q15MIN PRN IV SEE COMMENTS; Start 06/01/21 at 07:45 Acetaminophen (Tylenol) 650 mg PRN Q4HRS PRN PO TEMP OVER 100.4F OR MILD PAIN; Start 06/01/21 at 07:45 Enoxaparin Sodium (Lovenox 40mg Syringe) 40 mg Q24H SQ Last administered on 06/02/21at 08:41; Start 06/01/21 at 08:00 Acetaminophen/ Hydrocodone Bitart (Lortab 5/325) 1 tab PRN Q4HRS PRN PO MILD PAIN 1-3; Start 06/01/21 at 07:45 Acetaminophen/ Hydrocodone Bitart (Lortab 5/325) 2 tab PRN Q4HRS PRN PO MODERATE PAIN, SEVERE PAIN Last administered on 06/01/21at 21:16; Start 06/01/21 at 07:45 Clopidogrel Bisulfate (Plavix) 75 mg DAILYWBKFT PO Last administered on 06/02/21at 08:40; Start 06/01/21 at 08:45 Aspirin (Ecotrin) 81 mg DAILYWBKFT PO Last administered on 06/02/21at 08:39; Start 06/01/21 at 08:45 Atorvastatin Calcium (Lipitor) 40 mg QHS PO Last administered on 06/01/21at 21:16; Start 06/01/21 at 21:00 Carvedilol (Coreg) 6.25 mg BIDWMEALS PO Last administered on 06/02/21at 08:40; Start 06/01/21 at 17:00 Lisinopril (Prinivil) 5 mg DAILY PO Last administered on 06/02/21at 08:40; Start 06/02/21 at 09:00 Glipizide (Glucotrol) 10 mg BIDBFRMEAL PO Last administered on 06/02/21at 08:40; Start 06/01/21 at 17:30 Non-Formulary Medication (Liraglutide (Victoza 2-Chris)) 1.8 mg DAILY SQ ; Start 06/02/21 at 09:00; Stop 06/01/21 at 21:12; Status DC Non-Formulary Medication (Liraglutide (Victoza 2-Chris)) 1.8 mg HS SQ Last administered on 06/01/21at 21:19; Start 06/01/21 at 21:30 Active Scripts Active Reported Januvia (Sitagliptin Phosphate) 100 Mg Tablet 1 Tab PO DAILY Farxiga (Dapagliflozin Propanediol) 10 Mg Tablet 1 Tab PO DAILY Metformin Hcl Er (Metformin Hcl) 500 Mg Tab.er.24h 2 Tab PO BID Glipizide Er (Glipizide) 10 Mg Tab.er.24 1 Tab PO BID Lisinopril 5 Mg Tablet 1 Tab PO DAILY Victoza 2-Chris (Liraglutide) 0.6 Mg/0.1 Ml Pen.injctr 0.1 Mg SQ DAILY Atorvastatin Calcium 40 Mg Tablet 1 Tab PO DAILY Carvedilol (Carvedilol) 3.125 Mg Tablet 6.25 Mg PO BID Aspirin 81 Mg Tab.chew 325 Mg PO DAILY Vital Signs Vital Signs Date Time Temp Pulse Resp B/P (MAP) Pulse Ox O2 Delivery O2 Flow Rate FiO2 06/02/21 08:40 85 06/02/21 07:00 97.9 16 117/71 (86) 95 Room Air 97.9 Labs Laboratory Tests Test 05/31/21 22:00 05/31/21 22:20 05/31/21 22:21 06/01/21 08:39 Prothrombin Time 12.8 SEC (11.7-14.0) Prothromb Time International Ratio 1.0 (0.8-1.1) Activated Partial Thromboplast Time 34 SEC (24-38) White Blood Count 8.0 x10^3/uL (4.0-11.0) Red Blood Count 5.33 x10^6/uL (4.30-5.70) Hemoglobin 15.5 g/dL (13.0-17.5) Hematocrit 45.6 % (39.0-53.0) Mean Corpuscular Volume 86 fL (79-100) Mean Corpuscular Hemoglobin 29 pg (25-35) Mean Corpuscular Hemoglobin Concent 34 g/dL (31-37) Red Cell Distribution Width 14.4 % (11.5-14.5) Platelet Count 257 x10^3/uL (140-400) Neutrophils (%) (Auto) 54 % (31-73) Lymphocytes (%) (Auto) 35 % (24-48) Monocytes (%) (Auto) 8 % (0-9) Eosinophils (%) (Auto) 1 % (0-3) Basophils (%) (Auto) 1 % (0-3) Neutrophils # (Auto) 4.3 x10^3/uL (1.8-7.7) Lymphocytes # (Auto) 2.8 x10^3/uL (1.0-4.8) Monocytes # (Auto) 0.7 x10^3/uL (0.0-1.1) Eosinophils # (Auto) 0.1 x10^3/uL (0.0-0.7) Basophils # (Auto) 0.1 x10^3/uL (0.0-0.2) Sodium Level 138 mmol/L (136-145) Potassium Level 4.0 mmol/L (3.5-5.1) Chloride Level 101 mmol/L (98-107) Carbon Dioxide Level 31 mmol/L (21-32) Anion Gap 6 (6-14) Blood Urea Nitrogen 15 mg/dL (8-26) Creatinine 1.3 mg/dL (0.7-1.3) Estimated GFR (Cockcroft-Gault) 56.7 BUN/Creatinine Ratio 12 (6-20) Glucose Level 209 mg/dL (70-99) Calcium Level 9.3 mg/dL (8.5-10.1) Total Bilirubin 0.3 mg/dL (0.2-1.0) Aspartate Amino Transf (AST/SGOT) 15 U/L (15-37) Alanine Aminotransferase (ALT/SGPT) 32 U/L (16-63) Alkaline Phosphatase 118 U/L (46-116) Troponin I Quantitative < 0.017 ng/mL (0.000-0.055) Total Protein 7.4 g/dL (6.4-8.2) Albumin 3.8 g/dL (3.4-5.0) Albumin/Globulin Ratio 1.1 (1.0-1.7) Glucose (Fingerstick) 228 mg/dL (70-99) 144 mg/dL (70-99) Test 06/01/21 10:30 06/01/21 13:08 06/01/21 16:51 06/01/21 20:12 Hemoglobin A1c 7.4 % (4.8-5.6) Triglycerides Level 161 mg/dL (0-150) Cholesterol Level 156 mg/dL (0-200) LDL Cholesterol, Calculated 89 mg/dL (0-100) VLDL Cholesterol, Calculated 32 mg/dL (0-40) Non-HDL Cholesterol Calculated 121 mg/dL (0-129) HDL Cholesterol 35 mg/dL (40-60) Cholesterol/HDL Ratio 4.5 Glucose (Fingerstick) 172 mg/dL (70-99) 149 mg/dL (70-99) 161 mg/dL (70-99) Test 06/02/21 06:10 06/02/21 08:24 White Blood Count 6.6 x10^3/uL (4.0-11.0) Red Blood Count 5.17 x10^6/uL (4.30-5.70) Hemoglobin 15.0 g/dL (13.0-17.5) Hematocrit 44.5 % (39.0-53.0) Mean Corpuscular Volume 86 fL (79-100) Mean Corpuscular Hemoglobin 29 pg (25-35) Mean Corpuscular Hemoglobin Concent 34 g/dL (31-37) Red Cell Distribution Width 14.5 % (11.5-14.5) Platelet Count 225 x10^3/uL (140-400) Neutrophils (%) (Auto) 58 % (31-73) Lymphocytes (%) (Auto) 33 % (24-48) Monocytes (%) (Auto) 7 % (0-9) Eosinophils (%) (Auto) 1 % (0-3) Basophils (%) (Auto) 1 % (0-3) Neutrophils # (Auto) 3.8 x10^3/uL (1.8-7.7) Lymphocytes # (Auto) 2.2 x10^3/uL (1.0-4.8) Monocytes # (Auto) 0.5 x10^3/uL (0.0-1.1) Eosinophils # (Auto) 0.1 x10^3/uL (0.0-0.7) Basophils # (Auto) 0.0 x10^3/uL (0.0-0.2) Sodium Level 141 mmol/L (136-145) Potassium Level 4.3 mmol/L (3.5-5.1) Chloride Level 105 mmol/L (98-107) Carbon Dioxide Level 25 mmol/L (21-32) Anion Gap 11 (6-14) Blood Urea Nitrogen 20 mg/dL (8-26) Creatinine 1.0 mg/dL (0.7-1.3) Estimated GFR (Cockcroft-Gault) 76.7 Glucose Level 131 mg/dL (70-99) Calcium Level 8.9 mg/dL (8.5-10.1) Phosphorus Level 3.7 mg/dL (2.6-4.7) Magnesium Level 1.8 mg/dL (1.8-2.4) Glucose (Fingerstick) 123 mg/dL (70-99) Laboratory Tests Test 06/01/21 13:08 06/01/21 16:51 06/01/21 20:12 06/02/21 06:10 Glucose (Fingerstick) 172 mg/dL (70-99) 149 mg/dL (70-99) 161 mg/dL (70-99) White Blood Count 6.6 x10^3/uL (4.0-11.0) Red Blood Count 5.17 x10^6/uL (4.30-5.70) Hemoglobin 15.0 g/dL (13.0-17.5) Hematocrit 44.5 % (39.0-53.0) Mean Corpuscular Volume 86 fL (79-100) Mean Corpuscular Hemoglobin 29 pg (25-35) Mean Corpuscular Hemoglobin Concent 34 g/dL (31-37) Red Cell Distribution Width 14.5 % (11.5-14.5) Platelet Count 225 x10^3/uL (140-400) Neutrophils (%) (Auto) 58 % (31-73) Lymphocytes (%) (Auto) 33 % (24-48) Monocytes (%) (Auto) 7 % (0-9) Eosinophils (%) (Auto) 1 % (0-3) Basophils (%) (Auto) 1 % (0-3) Neutrophils # (Auto) 3.8 x10^3/uL (1.8-7.7) Lymphocytes # (Auto) 2.2 x10^3/uL (1.0-4.8) Monocytes # (Auto) 0.5 x10^3/uL (0.0-1.1) Eosinophils # (Auto) 0.1 x10^3/uL (0.0-0.7) Basophils # (Auto) 0.0 x10^3/uL (0.0-0.2) Sodium Level 141 mmol/L (136-145) Potassium Level 4.3 mmol/L (3.5-5.1) Chloride Level 105 mmol/L (98-107) Carbon Dioxide Level 25 mmol/L (21-32) Anion Gap 11 (6-14) Blood Urea Nitrogen 20 mg/dL (8-26) Creatinine 1.0 mg/dL (0.7-1.3) Estimated GFR (Cockcroft-Gault) 76.7 Glucose Level 131 mg/dL (70-99) Calcium Level 8.9 mg/dL (8.5-10.1) Phosphorus Level 3.7 mg/dL (2.6-4.7) Magnesium Level 1.8 mg/dL (1.8-2.4) Test 06/02/21 08:24 Glucose (Fingerstick) 123 mg/dL (70-99) Allergies Allergies Coded Allergies Type Severity Reaction Last Updated Verified canagliflozin Allergy Intermediate 01/26/18 Yes Disposition/Orders: D/C to Home Justicifation of Admission Dx: Justifications for Admission: Justification of Admission Dx: Yes Stroke - Ischemic: Stroke-Ischemic CHARLA STOVALL MD Jun 02, 2021 10:46
--- NOTE | 2021-06-02 10:47 | DISCH ---
DISCHARGE INSTRUCTIONS Condition on Discharge Condition on Discharge: Stable Activity After Discharge Activity Instructions for Disc: Activity as tolerated, Bedrest today, Other, see below Bathing Instructions: Shower-keep dressing dry, No Tub Bath until see Lifting Instructions after Dis: No heavy lifting, No pulling or pushing, Do not lift >10 pounds Exercise Instruction after Dis: Walk 10 min, 3 x per day Driving Instructions after Dis: Do not drive, Do not drive today Weight Bearing Status after Di: Other, see below Diet after Discharge Diet after Discharge: Diabetic No Calorie Level Liquid Texture: Thin Liquid Wound Incision Care Wound/Incision Care: Keep wound/cast CDI Wound Care Equipment: Dressings Checks after Discharge Checks after discharge: Check blood press - daily, Check blood sugar, ac/hs Contacting the [facility] after DC Call your doctor for: Concerns you may have Follow-Up Follow up with: PCP within 2 weeks of discharge Follow Up With: [employer] [facility] after discharge, follow up with echo results Treatment/Equipment after DC Adaptive Equipment Issued: None CHARLA STOVALL MD Jun 02, 2021 10:47
[2021-06-02] MEDS ORDERED: ASPI-886 PO (10:51)
[2021-06-02] MEDS ORDERED: INSU100V35 SQ (10:51)
[2021-06-02] MEDS ORDERED: DOCU-153 PO (10:51)
[2021-06-02] MEDS ORDERED: LIRAGLUTIDE SQ (10:51)
[2021-06-02 11:00] VITALS: BP 145/67
--- NOTE | 2021-06-02 12:19 | NUR ---
Discharge; Teaching verbal and written. Reviewed orders, follow-up Stroke prevention, HTN, cholesterol, DM, ect. Patient and verbalized understanding. Iv removed without complications, catheter tip-tact. All belongings with patient. Patient ambulated off of unit with with nurse.
--- NOTE | 2021-06-02 13:16 | NUR ---
SS following up with discharge planning. SS reviewed pt chart and discussed with pt RN. Pt is from home and is currently on room air. OT recommended home. Discharge order on the chart for home with self care.
== END 2021-06-02 12:00 | disposition home or self-care (01) | DRG 66 ==
LOC: ER 22:10 → ED HOLD 23:40 → 2 NORTH 06-01 01:10
PROVIDERS: ADMIT Internal Medicine; ATTEND Internal Medicine
DX: I63.9 Cerebral infarction, unspecified (principal); E11.65 Type 2 diabetes mellitus with hyperglycemia; E78.00 Pure hypercholesterolemia, unspecified; E78.5 Hyperlipidemia, unspecified; I10 Essential (primary) hypertension; G47.30 Sleep apnea, unspecified; I25.10 Atherosclerotic heart disease of native coronary artery without angina pectoris; Z79.82 Long term (current) use of aspirin; Z79.84 Long term (current) use of oral hypoglycemic drugs; Z79.899 Other long term (current) drug therapy; Z82.49 Family history of ischemic heart disease and other diseases of the circulatory system; Z90.49 Acquired absence of other specified parts of digestive tract; Z95.1 Presence of aortocoronary bypass graft; Z88.8 Allergy status to other drugs, medicaments and biological substances
CPT/HCPCS: 36415; 70450; 70496; 70498; 70551; 80048; 80053; 80061; 82962; 83036; 83735; 84100; 84484; 85025; 85610; 85730; 93005; 93306; J1650; J1815; Q9967; 92610-GN; 99285-25; G0378

== ENCOUNTER → 2022-02-02 | Outpatient (CLI) | payer BC ==
[~2022-02-02] MED LIST changes: +ASPI-886 PO; +CLOP75TA PO; +DOCU-148 PO; +GLIP10TA24 PO; +INSU100V35 SQ; +LIRAGLUTIDE SQ; +LISI5TAB15 PO; +METF-658 PO; +REGADENOSON 0.4 MG/5 ML DISP.SYRIN. IV ONE
--- NOTE | 2022-02-02 17:44 | RAD ---
MR#: [id number] Date of Study: 02/02/2022 Ordering Physician: SHEN OCONNOR, Referring Physician: PHYLICIA AL Tech: RT Rosa (R) (N) APPROVED REPORT Test Type: Pharmacological Stress Nurse/Tech: Karina Meadows R.N. Test Indications: dyspnea on exertion Cardiac History: 2014 03 vessel bypass, htn, dm, stroke Medications: see ehr Medical History: see ehr Resting ECG: sr see printout Resting Heart Rate: 70 bpm Resting Blood Pressure: 119/59mmHg Pretest Chest Pain: No chest pain Nurse/Tech Notes lungs cta, heart tones regular Consent: The procedure was explained to the patient in lay terms. Informed consent was witnessed. Bart eout was entered into [employer]. History and Stress Test performed by S[facility]. Details Pharmacologic stress testing was performed using 0.4mg per 5ml of regadenoson given intravenously ove r 7-10 seconds. Stress Symptoms No chest pain or symptoms. POST EXERCISE Reason for Termination: Infusion complete Target HR: No Max HR: 96 bpm Max Blood Pressure: 115/59mmHg Chest Pain: No. Arrhythmia: No. ST Change: No. INTERPRETATION Stress EKG Conclusion: Baseline EKG showed sinus rhythm. No ischemic changes at peak stress. No arr hythmias. Imaging Protocol IMAGE PROTOCOL: Rest Tc-99m/stress Tc-99m 1 day Rest: Stress: Viability: Radiopharm.Tc99m VzhgmyzylDu16l Sestamibi Jhqw19xLu 31.5mCi Duration 13min. 13min. Img Date 02/02/2022 02/02/2022 Inj-Img [id number]. 60min. Rest Admin Site:IV - Right AntecubitalAdministrator:RT Charles Lee)(N) Stress Admin Site: IV - Right AntecubitalAdministrator: SALEEM Middleton STRESS DATA End Diast. Vol.113.0mlLVEDV index BSA49.0ml End Syst. Vol.44.0mlLVESV index BSA19.0ml Myocardial Nrzl830.0gEject. Uaumicrt11.0% Stress Scores Regional WT0.00Summed WT7.00 Regional WM0.00Summed WM7.00 LV Perfusion Scintigraphic images showed moderate fixed defect involving the inferior wall and extending into the inferolateral wall consistent with prior myocardial infarction without any reversibility. Wall Motion Abnormal septal motion probably secondary to CABG. The left ventricle ejection fraction is preserved at 61%. LV Perf. Quant 17 Seg. SSS12.00 17 Seg. SRS12.00 17 Seg. SDS0.00 Stress Defect Extent (% LAD)0.00Rest Defect Extent (% LAD)0.00Rev. Defect Extent (% LAD)0.00 Stress Defect Extent (% LCX) 68.80Rest Defect Extent (% LCX)62.50Rev. Defect Extent (% LCX)0.00 Stress Defect Extent (% RCA)27.80Rest Defect Extent (% RCA)38.90Rev. Defect Extent (% RCA)0.00 Stress Defect Extent (% JACQUELIN)23.30Rest Defect Extent (% JACQUELIN)23.50Rev. Defect Extent (% JACQUELIN)0.00 Conclusion 1. Regadenoson cardioisotope stress test showed moderate infarct involving the inferior wall and exte nding into the inferolateral wall without any ischemia. 2. Abnormal septal motion probably secondary to CABG. The left ventricle ejection fraction is preser torie at 61%. 3. Low risk for cardiac events. Signed by : Dl Boudreaux, Electronically Approved : 02/02/2022 17:43:50
== END ==
LOC: NM 08:10
PROVIDERS: ATTEND Internal Medicine Cardiovascular Disease
DX: I21.9 Acute myocardial infarction, unspecified (principal); R06.00 Dyspnea, unspecified
CPT/HCPCS: 78452; 93017; A9500; J2785